=== PATIENT | female | born 1970 | race Caucasian/White ===

== ENCOUNTER 2016-12-02 20:25 | Emergency (ER) | payer BC ==
[~2016-12-02 20:25] MED LIST: /WARF25TA; ACET65TA OR; COUM10TA OR; GLUCTAB2; Lovenox SUBQ; TYLENOL #3 OR
--- NOTE | 2016-12-02 23:18 | EDDOCDS ---
Physician Documentation [facility] Name: Kelsy Marx Age: 46 yrs Sex: Female : 1970 Arrival Date: 12/02/2016 Time: 20:25 Bed TR8 Private MD: Fernando Craig NCFM Disposition: 12/02/16 22:53 Discharged to Home/Self Care. Impression: Sialolithiasis - AFFECTING RIGHT PAROTID GLAND. - Condition is Stable. - Discharge Instructions: Salivary Gland Infection. - Prescriptions for Keflex 500 mg Oral Capsule - take 1 capsule by ORAL route every 6 hours for 10 days; 40 capsule. - Medication Reconciliation, Local Pharmacy Hours form. - Follow up: Emergency Department; When: As needed; Reason: Worsening of conditions. Follow up: Private Physician; When: 2 - 3 days; Reason: Wound/Symptom Recheck, Recheck today's complaints, Continuance of care. - Problem is new. - Symptoms are unchanged. - Notes: THERE IS CURRENTLY NO INFECTION IN THE PAROTID GLAND, BUT YOU ARE GETTING AN ANBIOTIC TODAY TO PREVENT THIS FROM OCCURING. USE WARM, WET WASH CLOTH A COMPRESS TO THIS AREA FOR A FEW MINUTES AT A TIME. SUCK ON TART CANDIES TO HELP INCREASE SALIVA AND HELP WORK THE STONE OUT. YOU CAN ALSO MILK THIS AREA BY RUBBING WITH YOUR FINGER. RETURN TO THE ER WITH ANY WORSENING SYMPTOMS. Historical: - Allergies: Bactrim (Rash); Erythromycin (Rash); - Home Meds: 1. aspirin 81 mg Oral chew 1 tab once daily - PMHx: DVT; - PSHx: Arthroscopic surgery left knee, torn meniscus.; Tonsillectomy; ; D & C; - Social history: Smoking status: Patient states was never smoker of tobacco. No barriers to communication noted, The patient speaks fluent Nepalese. - Family history: No immediate family members are acutely ill. - : The pt / caregiver states he / she is not on anticoagulants. Home medication list is obtained from the patient. - Exposure Risk Screening:: None identified. 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 6 in. (167.64 cm); Pain 10; 20:28 Body Mass Index 35.51 (99.79 kg, 167.64 cm) elp MDM: 23:06 [facility] Payment Agreement was scanned into [employer] and attached to record. jp5 23:06 Financial registration complete. jp5 Signatures: Evelina Méndez RN RN kmg1 Kika Aceves RN RN rs3 Luisa Dalton PA-C PARich dt4 Sada Angel jp5 The chart was reviewed and I authenticate all verbal orders and agree with the evaluation and treatment provided.Attachments: 23:06 [facility] Payment Agreement jp5 MTDD
--- NOTE | 2016-12-02 23:18 | EDDOCDS ---
Nurse's Notes [facility] Name: Kelsy Marx Age: 46 yrs Sex: Female : 1970 Arrival Date: 12/02/2016 Time: 20:25 Bed TR8 Private MD: Fernando Craig NCFM Diagnosis: Sialolithiasis-AFFECTING RIGHT PAROTID GLAND Presentation: 12/02 20:45 Presenting complaint: Patient states: sudden onset of right jaw spasm and swelling at 7 rs3 PM. felt like jaw locked in. Adult Sepsis Screening: The patient does not have new or worsening altered mentation. Patient's respiratory rate is less than 22. Systolic blood pressure is greater than 100. Patient has a qSOFA score of 0- Negative Sepsis Screen. Suicide/Homicide risk assessment- the patient denies having any suicidal and/or homicidal ideations and does not present with any other emotional, behavioral or mental health complaints. Status: Patient is not a patient services representative or dependent. Transition of care: patient was not received from another setting of care. 20:45 Acuity: OSCAR Level 3 rs3 20:45 Method Of Arrival: Walkin/Carried/Asstd rs3 Triage Assessment: 20:48 General: Appears in no apparent distress. Pain: Location: right jaw. HIV screening NA rs3 for this visit Offered previously. 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 aspirin 81 mg Oral chew 1 tab once daily - PMHx: DVT; - PSHx: Arthroscopic surgery left knee, torn meniscus.; Tonsillectomy; ; D & C; - Social history: Smoking status: Patient states was never smoker of tobacco. No barriers to communication noted, The patient speaks fluent Tajik. - Family history: No immediate family members are acutely ill. - : The pt / caregiver states he / she is not on anticoagulants. Home medication list is obtained from the patient. - Exposure Risk Screening:: None identified. Screenin:00 Screening information is obtained from the patient. Fall risk: No risks identified. kmg1 Assistance ADL's: requires no assistance with activities of daily living. Abuse/DV Screen: The patient / caregiver reports he/she is: not in a situation that causes fear, pain or injury. Nutritional screening: No deficits noted. Advance Directives: There is no active DNR order. home support is adequate. Assessment: 23:00 General: Appears in no apparent distress, comfortable, Behavior is appropriate for age, kmg1 cooperative, pleasant. Pain: Location: right jaw Pain currently is 3 out of 10 on a pain scale. Quality of pain is described as tender. EENT: right facial swelling noted. Improved per patient. Vital Signs: 20:28 BP 165 / 85; Pulse 84; Resp 18; Temp 98.8; Pulse Ox 100% ; Weight 99.79 kg; Height 5 elp ft. 6 in. (167.64 cm); Pain 3/10; 20:28 Body Mass Index 35.51 (99.79 kg, 167.64 cm) el Vitals: 20:27 Log In Time: December 02, 2016 at 20:25. el ED Course: 20:26 Patient visited by Lisa Reyes PCA. elp 20:26 Fernando Craig is Private Physician. elp 20:26 Patient moved to Waiting elp 20:28 Patient visited by Lisa Reyes PCA. elp 20:28 Patient moved to Pre RCE elp 20:47 Triage Initiated rs3 22:00 Patient moved to Triage 3 ct3 22:02 Luisa Dalton PA-C [facility]. dt4 22:02 Tyler Ellis DO is Attending Physician. dt4 22:03 Patient visited by Luisa Dalton PA-C. dt4 23:00 The patient / caregiver is instructed regarding the plan of care and ED course. kmg1 23:00 No IV's were initiated during this patient's visit. No procedures done that require [facility] assistance. 23:03 Patient moved to 8 km 23:06 [facility] Payment Agreement was scanned into [employer] and attached to record. jp5 Order Results: There are currently no results for this order. Outcome: 22:53 Discharge ordered by Provider. dt4 23:00 Discharge Assessment: Patient awake, alert and oriented x 3. No cognitive and/or kmg1 functional deficits noted. Patient verbalized understanding of disposition instructions. Patient awake and alert. patient administered narcotics - no. The following High Risk Discharge criteria are identified: None. Discharged to home ambulatory. Condition: stable. Discharge instructions given to patient, Instructed on discharge instructions, follow up and referral plans. medication usage, Demonstrated understanding of instructions, medications, Pt was receptive of discharge instructions/ teaching. No special radiology studies were completed. Property sent home with patient. 23:18 Patient left the ED. kmg1 Signatures: Evelina Méndez, RN RN kmg1 Kika Aceves RN RN rs3 Jerri Keith, TIMEKEEPER TIMEKEEPER ct3 Lisa Reyes, TIMEKEEPER TIMEKEEPER elp Luisa Dalton PA-C PARich dt4 Sada Angel jp5 MTDD
--- NOTE | 2016-12-05 00:18 | EDDOCDS ---
Physician Documentation [facility] Name: Kelsy Marx Age: 46 yrs Sex: Female : 1970 Arrival Date: 12/02/2016 Time: 20:25 Bed TR8 Private MD: Fernando Craig NCFM Disposition: 12/02/16 22:53 Discharged to Home/Self Care. Impression: Sialolithiasis - AFFECTING RIGHT PAROTID GLAND. - Condition is Stable. - Discharge Instructions: Salivary Gland Infection. - Prescriptions for Keflex 500 mg Oral Capsule - take 1 capsule by ORAL route every 6 hours for 10 days; 40 capsule. - Medication Reconciliation, Local Pharmacy Hours form. - Follow up: Emergency Department; When: As needed; Reason: Worsening of conditions. Follow up: Private Physician; When: 2 - 3 days; Reason: Wound/Symptom Recheck, Recheck today's complaints, Continuance of care. - Problem is new. - Symptoms are unchanged. - Notes: THERE IS CURRENTLY NO INFECTION IN THE PAROTID GLAND, BUT YOU ARE GETTING AN ANBIOTIC TODAY TO PREVENT THIS FROM OCCURING. USE WARM, WET WASH CLOTH A COMPRESS TO THIS AREA FOR A FEW MINUTES AT A TIME. SUCK ON TART CANDIES TO HELP INCREASE SALIVA AND HELP WORK THE STONE OUT. YOU CAN ALSO MILK THIS AREA BY RUBBING WITH YOUR FINGER. RETURN TO THE ER WITH ANY WORSENING SYMPTOMS. Historical: - Allergies: Bactrim (Rash); Erythromycin (Rash); - Home Meds: 1. aspirin 81 mg Oral chew 1 tab once daily - PMHx: DVT; - PSHx: Arthroscopic surgery left knee, torn meniscus.; Tonsillectomy; ; D & C; - Social history: Smoking status: Patient states was never smoker of tobacco. No barriers to communication noted, The patient speaks fluent Irish. - Family history: No immediate family members are acutely ill. - : The pt / caregiver states he / she is not on anticoagulants. Home medication list is obtained from the patient. - Exposure Risk Screening:: None identified. 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 6 in. (167.64 cm); Pain 01/20; 20:28 Body Mass Index 35.51 (99.79 kg, 167.64 cm) elp MDM: : [facility] [place] Agreement was scanned into [employer] and attached to record. 5 : Financial registration complete. jp5 12/03 10:38 T-Sheet-- Draft Copy was scanned into [employer] and attached to record. 12/04 16:15 T-Sheet-- Draft Copy was scanned into [employer] and attached to record. klr Signatures: Evelina Méndez, RN RN kmg1 Lillian Fletcher, Reg Reg gb Kika Aceves,RN RN rs3 Luisa Dalton PA-C PARich chan4 Sada Angel jp5 Brooke Morataya The chart was reviewed and I authenticate all verbal orders and agree with the evaluation and treatment provided.Attachments: 12/02 23: [facility] [place] Agreement jp5 12/03 10:38 T-Sheet-- Draft Copy 12/04 16:15 T-Sheet-- Draft Copy klr Chart Complete MTDD
--- NOTE | 2016-12-05 00:18 | EDDOCDS ---
Nurse's Notes [facility] Name: Kelsy Marx Age: 46 yrs Sex: Female : 1970 Arrival Date: 12/02/2016 Time: 20:25 Bed TR8 Private MD: Fernando Craig NCFM Diagnosis: Sialolithiasis-AFFECTING RIGHT PAROTID GLAND Presentation: 12/02 20:45 Presenting complaint: Patient states: sudden onset of right jaw spasm and swelling at 7 rs3 PM. felt like jaw locked in. Adult Sepsis Screening: The patient does not have new or worsening altered mentation. Patient's respiratory rate is less than 22. Systolic blood pressure is greater than 100. Patient has a qSOFA score of 0- Negative Sepsis Screen. Suicide/Homicide risk assessment- the patient denies having any suicidal and/or homicidal ideations and does not present with any other emotional, behavioral or mental health complaints. Status: Patient is not a account services representative or dependent. Transition of care: patient was not received from another setting of care. 20:45 Acuity: OSCAR Level 3 rs3 20:45 Method Of Arrival: Walkin/Carried/Asstd rs3 Triage Assessment: 20:48 General: Appears in no apparent distress. Pain: Location: right jaw. HIV screening NA rs3 for this visit Offered previously. 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 aspirin 81 mg Oral chew 1 tab once daily - PMHx: DVT; - PSHx: Arthroscopic surgery left knee, torn meniscus.; Tonsillectomy; ; D & C; - Social history: Smoking status: Patient states was never smoker of tobacco. No barriers to communication noted, The patient speaks fluent Telugu. - Family history: No immediate family members are acutely ill. - : The pt / caregiver states he / she is not on anticoagulants. Home medication list is obtained from the patient. - Exposure Risk Screening:: None identified. Screenin:00 Screening information is obtained from the patient. Fall risk: No risks identified. kmg1 Assistance ADL's: requires no assistance with activities of daily living. Abuse/DV Screen: The patient / caregiver reports he/she is: not in a situation that causes fear, pain or injury. Nutritional screening: No deficits noted. Advance Directives: There is no active DNR order. home support is adequate. Assessment: 23:00 General: Appears in no apparent distress, comfortable, Behavior is appropriate for age, kmg1 cooperative, pleasant. Pain: Location: right jaw Pain currently is 3 out of 10 on a pain scale. Quality of pain is described as tender. EENT: right facial swelling noted. Improved per patient. Vital Signs: 20:28 BP 165 / 85; Pulse 84; Resp 18; Temp 98.8; Pulse Ox 100% ; Weight 99.79 kg; Height 5 elp ft. 6 in. (167.64 cm); Pain 3/10; 20:28 Body Mass Index 35.51 (99.79 kg, 167.64 cm) el Vitals: 20:27 Log In Time: December 02, 2016 at 20:25. elp ED Course: 20:26 Patient visited by Lisa Reyes PCA. elp 20:26 Fernando Craig is Private Physician. elp 20:26 Patient moved to Waiting elp 20:28 Patient visited by Lisa Reyes PCA. elp 20:28 Patient moved to Pre RCE elp 20:47 Triage Initiated rs3 22:00 Patient moved to Triage 3 ct3 22:02 [facility] dt4 22:02 Tyler Ellis DO is Attending Physician. dt4 22:03 Patient visited by Luisa Dalton PA-C. dt4 23:00 The patient / caregiver is instructed regarding the plan of care and ED course. kmg1 23:00 No IV's were initiated during this patient's visit. No procedures done that require km assistance. 23:03 Patient moved to TR8 kmg1 23:06 [facility] Payment Agreement was scanned into [employer] and attached to record. jp5 12/03 10:38 T-Sheet-- Draft Copy was scanned into [employer] and attached to record. gb 12/04 16:15 T-Sheet-- Draft Copy was scanned into [employer] and attached to record. klr Order Results: There are currently no results for this order. Outcome: 12/02 22:53 Discharge ordered by Provider. dt4 23:00 Discharge Assessment: Patient awake, alert and oriented x 3. No cognitive and/or kmg1 functional deficits noted. Patient verbalized understanding of disposition instructions. Patient awake and alert. patient administered narcotics - no. The following High Risk Discharge criteria are identified: None. Discharged to home ambulatory. Condition: stable. Discharge instructions given to patient, Instructed on discharge instructions, follow up and referral plans. medication usage, Demonstrated understanding of instructions, medications, Pt was receptive of discharge instructions/ teaching. No special radiology studies were completed. Property sent home with patient. 23:18 [place] the [place]. [facility] [place]: Evelina Méndez, RN RN kmg1 Lillian Fletcher, Reg Reg gb Kika AcevesRN RN rs3 Jerri Keith, INSULATION POWER UNIT TENDER INSULATION POWER UNIT TENDER ct3 Lisa Reyes, INSULATION POWER UNIT TENDER INSULATION POWER UNIT TENDER elp Luisa Dalton PA-C PA-C dt4 Sada Angel Kathie klr Chart Complete NANCY
--- NOTE | 2016-12-05 00:18 | EDDOCDS ---
Physician Documentation [facility] Name: Kelsy Marx Age: 46 yrs Sex: Female : 1970 Arrival Date: 12/02/2016 Time: 20:25 Bed TR8 Private MD: Fernando Craig NCFM Disposition: 12/02/16 22:53 Discharged to Home/Self Care. Impression: Sialolithiasis - AFFECTING RIGHT PAROTID GLAND. - Condition is Stable. - Discharge Instructions: Salivary Gland Infection. - Prescriptions for Keflex 500 mg Oral Capsule - take 1 capsule by ORAL route every 6 hours for 10 days; 40 capsule. - Medication Reconciliation, Local Pharmacy Hours form. - Follow up: Emergency Department; When: As needed; Reason: Worsening of conditions. Follow up: Private Physician; When: 2 - 3 days; Reason: Wound/Symptom Recheck, Recheck today's complaints, Continuance of care. - Problem is new. - Symptoms are unchanged. - Notes: THERE IS CURRENTLY NO INFECTION IN THE PAROTID GLAND, BUT YOU ARE GETTING AN ANBIOTIC TODAY TO PREVENT THIS FROM OCCURING. USE WARM, WET WASH CLOTH A COMPRESS TO THIS AREA FOR A FEW MINUTES AT A TIME. SUCK ON TART CANDIES TO HELP INCREASE SALIVA AND HELP WORK THE STONE OUT. YOU CAN ALSO MILK THIS AREA BY RUBBING WITH YOUR FINGER. RETURN TO THE ER WITH ANY WORSENING SYMPTOMS. Historical: - Allergies: Bactrim (Rash); Erythromycin (Rash); - Home Meds: 1. aspirin 81 mg Oral chew 1 tab once daily - PMHx: DVT; - PSHx: Arthroscopic surgery left knee, torn meniscus.; Tonsillectomy; ; D & C; - Social history: Smoking status: Patient states was never smoker of tobacco. No barriers to communication noted, The patient speaks fluent Solomon Islander. - Family history: No immediate family members are acutely ill. - : The pt / caregiver states he / she is not on anticoagulants. Home medication list is obtained from the patient. - Exposure Risk Screening:: None identified. 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 6 in. (167.64 cm); Pain 01/20; 20:28 Body Mass Index 35.51 (99.79 kg, 167.64 cm) elp MDM: : [facility] [place] Payment Agreement was scanned into [employer] and attached to record. 5 : Financial registration complete. jp5 12/03 10:38 T-Sheet-- Draft Copy was scanned into [employer] and attached to record. 12/04 16:15 T-Sheet-- Draft Copy was scanned into [employer] and attached to record. klr Signatures: Evelina Méndez, RN RN kmg1 Lillian Fletcher, Reg Reg gb Kika Aceves,RN RN rs3 Luisa Dalton PA-C PARich chan4 Sada Angel jp5 Brooke Morataya The chart was reviewed and I authenticate all verbal orders and agree with the evaluation and treatment provided.Attachments: 12/02 23: [facility] [place] Payment Agreement jp5 12/03 10:38 T-Sheet-- Draft Copy 12/04 16:15 T-Sheet-- Draft Copy klr Chart Complete MTDD
== END 2016-12-02 23:18 | disposition home or self-care (01) ==
LOC: M ED 20:25
DX: K11.5 Sialolithiasis (principal); R22.1 Localized swelling, mass and lump, neck; Z79.82 Long term (current) use of aspirin; Z86.718 Personal history of other venous thrombosis and embolism; Z88.1 Allergy status to other antibiotic agents

== ENCOUNTER 2016-12-03 14:37 | Emergency (ER) | payer BC ==
[2016-12-03] MEDS ORDERED: KETOROLAC 30 MG/ML VIAL (J1885) As Ordered ONE (18:46)
[2016-12-03] MEDS ORDERED: UNASYN 3 GM VIAL As Ordered ONE (18:51)
[2016-12-03 19:14] LABS: ANION GAP 8 MEQ/L (8-16); BLOOD UREA NITROGEN 14 MG/DL (7-18); CALCIUM LEVEL 8.8 MG/DL (8.5-10.1); CARBON DIOXIDE LEVEL 27 MEQ/L (21-32); CHLORIDE LEVEL 106 MEQ/L (98-107); CREATININE FOR GFR 0.67 MG/DL (0.55-1.02); GLOMERULAR FILTRATION RATE > 60.0 (>58); GLUCOSE, FASTING 88 MG/DL (70-105); POTASSIUM SERUM 3.7 MEQ/L (3.5-5.1); SODIUM LEVEL 141 MEQ/L (136-145)
[2016-12-03] MEDS ORDERED: ISOVUE-370 76% 100ML VIAL (Q9967) As Ordered ONE (19:26)
[2016-12-03 19:29] LABS: BASO # 0.1 K/mm3 (0.0-0.2); BASO % 0.6 % (0.0-1.0); EOS # 0.1 K/mm3 (0.0-0.50); EOS % 1.4 % (0.0-3.0); LARGE UNSTAINED CELL # 0.1 K/mm3 (0.0-0.4); LARGE UNSTAINED CELL % 1.1 % (0.0-4.0); LYMPH # 1.9 K/mm3 (1.5-4.5); LYMPH % 19.7 % (24.0-44.0); MEAN CORPUSCULAR HEMOGLOBIN 25.8 pg (27.0-33.0); MEAN CORPUSCULAR HGB CONC 32.4 g/dl (32.0-36.5); MEAN CORPUSCULAR VOLUME 79.6 fl (80.0-96.0); MONO # 0.4 K/mm3 (0.0-0.8); MONO % 4.2 % (0.0-5.0); NEUTROPHILS # 7.2 K/mm3 (1.8-7.7); PLATELET COUNT, AUTOMATED 310 k/mm3 (150-450); RED CELL DISTRIBUTION WIDTH 14.2 % (11.5-14.5); WHITE BLOOD COUNT 9.8 K/mm3 (4.0-10.0)
--- NOTE | 2016-12-03 20:20 | REPUSA ---
HISTORY: Right facial swelling. COMPARISON: No relevant comparison is available at the time of interpretation. CT FACE MANDIBLE without contrast: Soft Tissues: The right parotid gland is larger than the left, and demonstrates increased vascularity , suggesting parotiditis. There is no evidence of abscess. Sinuses and mastoids: Clear, without sinusitis. Orbits: No retrobulbar trauma. Maxilla: Intact. Mandible: Intact. IMPRESSION: Swelling and hyperemia of the right parotid gland, consistent with parotiditis. No absces s.
[2016-12-03] MEDS ORDERED: NORCO 5/325MG TABLET (BULK) As Ordered ONE (21:02)
--- NOTE | 2016-12-03 21:13 | EDDOCDS ---
Physician Documentation [facility] Name: Kelsy Marx Age: 46 yrs Sex: Female : 1970 Arrival Date: 12/03/2016 Time: 14:37 Bed I2 / M2 Private MD: Fernando Craig [facility] Disposition: 12/03/16 21:00 Discharged to Home/Self Care. Impression: Acute sialoadenitis - right. - Condition is Stable. - Discharge Instructions: Parotitis, Salivary Gland Infection. - Prescriptions for [place] 5- 325 mg Oral Tablet - take 1 tablet by ORAL route every 6 hours As needed MDD: 4 tabs; 20 tablet. - Medication Reconciliation, Local Pharmacy Hours form. - Follow up: Ayush Nugent; When: Call to arrange an appointment; Reason: Recheck today's complaints, Continuance of care. - Problem is new. - Symptoms are unchanged. Historical: - Allergies: Bactrim (Rash); Erythromycin (Rash); - Home Meds: 1. aspirin 81 mg Oral chew 1 tab once daily 2. cephalexin 500 mg Oral tab 1 tab every 6 hours (Last dose: 12/03/2016 11:30) - PMHx: DVT; - PSHx: Arthroscopic surgery left knee, torn meniscus.; Tonsillectomy; ; D & C; thumb, left; - Social history: Smoking status: Patient states was never smoker of tobacco. No barriers to communication noted. - Family history: Not pertinent. - : The pt / caregiver states he / she is not on anticoagulants. Home medication list is obtained from the patient. - Exposure Risk Screening:: None identified. 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 6 in. (167.64 cm) (R); Pain 5/10; 19:13 BP 138 / 74; Pulse 71; Resp 18; Temp 99.2(TE); Pulse Ox 96% on R/A; Pain 0/10; kb5 21:10 BP 139 / 85; Pulse 71; Resp 18; Temp 98(O); Pulse Ox 98% on R/A; ld5 14:40 Body Mass Index 35.51 (99.79 kg, 167.64 cm) mt4 MDM: 18:34 IV Saline Lock ordered. mo1 18:34 NS 0.9% 1000 ml IV at bolus once ordered. mo1 18:34 Ampicillin-Sulbactam Sodium 3 grams IVPB once over 30 mins; dilute in 100mL of NS or mo1 D5W ordered. 18:34 ketorolac 30 mg IVP once ordered. mo1 18:34 CT Maxillofacial with contrast Ordered. EDMS 18:35 CBC with Diff Ordered. EDMS 18:35 BMP Ordered. EDMS 18:50 C REACTIVE PROTEIN QUANTITATIV Ordered. EDMS 19:34 BMP Reviewed. mo1 19:34 C REACTIVE PROTEIN QUANTITATIV Reviewed. mo1 19:34 CBC with Diff Reviewed. mo1 20:56 HYDROcodone-acetaminophen 4 pack- 5 mg-325 mg 1 packets PO Per package directions; mo1 Dispense with patient. 1 po q4h prn for pain ordered. Administered Medications: 18:50 Drug: NS 0.9% 1000 ml [sodium chloride 0.9 % injection solution] Route: IV; Rate: dsf bolus; Site: right antecubital; 21:10 Follow up: IV Status: Completed infusion; IV Intake: 1000ml ld5 18:50 Drug: ketorolac 30 mg [ketorolac 30 mg/mL (1 mL) injection solution (1 mL)] Route: IVP; dsf Site: right antecubital; 21:10 Follow up: Response: Pain is decreased ld5 18:58 Drug: Ampicillin-Sulbactam Sodium 3 grams [ampicillin-sulbactam 1.5 gram solution for srm injection] Route: IVPB; Infused Over: 30 mins; Site: right antecubital; 19:40 Follow up: IV Status: Completed infusion; IV Intake: 100ml ld5 21:09 Drug: HYDROcodone-acetaminophen 4 pack- 1 packets [hydrocodone 5 mg-acetaminophen 325 ld5 mg tablet (1 tabs)] {Co-Signature: [facility] (Mary Mandujano RN).} Route: PO; 21:10 Follow up: Response: Confirmed pt not driving.; Med's dispensed home ld5 Signatures: Dispatcher [employer] EDMS Yumiko Morillo RN RN [facility] Yoanna Campuzano RN RN 5 Mary Mandujano RN RN [facility] Isaias Castillo PA PA moNevaeh Christopher RN [facility] Mary Mandujano RN [facility] The chart was reviewed and I authenticate all verbal orders and agree with the evaluation and treatment provided.Corrections: (The following items were deleted from the chart) 18:49 18:45 C REACTIVE PROTEIN QUANTITATIV+LAB ordered. EDMS EDMS MTDD
--- NOTE | 2016-12-03 21:14 | EDDOCDS ---
Nurse's Notes [facility] Name: Kelsy Marx Age: 46 yrs Sex: Female : 1970 Arrival Date: 12/03/2016 Time: 14:37 Bed I2 / M2 Private MD: Fernando Craig NCFM Diagnosis: Acute sialoadenitis-right Presentation: 12/03 15:07 Presenting complaint: Patient states: seen here last night and diagnosed with salivary cjh gland stone and now it is getting worse, can't open jaw due to spasms and pain and can't eat. Adult Sepsis Screening: The patient does not have new or worsening altered mentation. Patient's respiratory rate is less than 22. Systolic blood pressure is greater than 100. Patient has a qSOFA score of 0- Negative Sepsis Screen. Suicide/Homicide risk assessment- the patient denies having any suicidal and/or homicidal ideations and does not present with any other emotional, behavioral or mental health complaints. Status: Patient is not a customer servicer or dependent. Transition of care: patient was not received from another setting of care. 15:07 Acuity: OSCAR Level 3 [facility] 15:07 Method Of Arrival: Walkin/Carried/Asstd [facility] Triage Assessment: 15:10 General: Appears in no apparent distress, comfortable, Behavior is appropriate for age, [facility] cooperative. Pain: Location: face. HIV screening NA for this visit Offered previously. Neurological: Level of Consciousness is awake, alert, Oriented to person, place, time. Respiratory: Airway is patent Respiratory effort is even, unlabored, Respiratory pattern is regular, symmetrical. Derm: Skin is pink, warm & dry. Swollen area noted on head. 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 aspirin 81 mg Oral chew 1 tab once daily 2. cephalexin 500 mg Oral tab 1 tab every 6 hours (Last dose: 12/03/2016 11:30) - PMHx: DVT; - PSHx: Arthroscopic surgery left knee, torn meniscus.; Tonsillectomy; ; D & C; thumb, left; - Social history: Smoking status: Patient states was never smoker of tobacco. No barriers to communication noted. - Family history: Not pertinent. - : The pt / caregiver states he / she is not on anticoagulants. Home medication list is obtained from the patient. - Exposure Risk Screening:: None identified. Screenin:10 Screening information is obtained from the patient. Fall risk: No risks identified. ld5 Assistance ADL's: requires no assistance with activities of daily living. Abuse/DV Screen: The patient / caregiver reports he/she is: not in a situation that causes fear, pain or injury. Nutritional screening: No deficits noted. Advance Directives: There is no active DNR order. home support is adequate. Assessment: 18:47 General: Appears in no apparent distress, Behavior is appropriate for age, cooperative. srm Neurological: No deficits noted. Respiratory: No deficits noted. GI: No deficits noted. Derm: swelling to right lower side of face/ jaw. 19:40 General: Pt returned from CT. Tolerated well. Pt ambulated to bathroom with no ld5 distress. Will continue to monitor. 20:36 General: ambulates to bathroom with no assist required, gait steady, awaiting results, cjh IV infusing without difficulty. 21:10 General: Appears in no apparent distress. Pain: Pain currently is 1 out of 10 on a pain ld5 scale. Neurological: Level of Consciousness is awake, alert. Respiratory: Airway is patent Respiratory effort is even, unlabored. Vital Signs: 14:40 BP 133 / 88 RA Sitting (auto/reg); Pulse 81 RA; Resp 18 S; Temp 98.8(O); Pulse Ox 100% mt4 ; Weight 99.79 kg (R); Height 5 ft. 6 in. (167.64 cm) (R); Pain 5/10; 19:13 BP 138 / 74; Pulse 71; Resp 18; Temp 99.2(TE); Pulse Ox 96% on R/A; Pain 0/10; kb5 21:10 BP 139 / 85; Pulse 71; Resp 18; Temp 98(O); Pulse Ox 98% on R/A; ld5 14:40 Body Mass Index 35.51 (99.79 kg, 167.64 cm) mt4 Vitals: 14:40 Log In Time: December 03, 2016 at 14:37. RN notified that patient meets Red Flag mt4 criteria. ED Course: 14:40 Patient visited by Yuliya White. mt4 14:40 Fernando Craig is Private Physician. mt4 14:40 Patient moved to Waiting mt4 15:09 Triage Initiated cjh 15:10 Patient moved to Pre RCE kr3 18:10 Patient moved to Triage 1 sew 18:19 Isaias Castillo PA is PHCP. mo1 18:19 David Chang MD is Attending Physician. mo1 18:28 Patient visited by Isaias Castillo PA. mo1 18:37 Patient moved to I2 / M2 jf3 18:47 The patient / caregiver is instructed regarding the plan of care and ED course. srm Accompanied by Significant Other, Patient has correct armband on for positive identification. Placed in gown. Bed in low position. Call light in reach. 18:47 Inserted saline lock: 20 gauge in right antecubital area and blood collected. srm 18:47 CBC with Diff Sent. srm 18:51 C REACTIVE PROTEIN QUANTITATIV Sent. dsf 18:51 BMP Sent. dsf 18:58 Patient visited by Yumiko Morillo RN. srm 19:14 Patient visited by Portillo Walter PCA. kb5 19:41 Patient visited by Yoanna Campuzano,GRACE. ld5 20:11 Patient visited by Portillo Walter PCA. kb5 20:38 Patient visited by Mary Mandujano,GRACE. [facility] 21:00 Ayush Nugent is Referral Physician. mo1 21:09 CT Maxillofacial with contrast Returned. EDMS 21:10 Discontinued lock intact, bleeding controlled, pressure dressing applied, No ld5 redness/swelling at site. No procedures done that require assistance. 21:12 Patient visited by Yoanna Campuzano,GRACE. ld5 Administered Medications: 18:50 Drug: NS 0.9% 1000 ml [sodium chloride 0.9 % injection solution] Route: IV; Rate: dsf bolus; Site: right antecubital; 21:10 Follow up: IV Status: Completed infusion; IV Intake: 1000ml ld5 18:50 Drug: ketorolac 30 mg [ketorolac 30 mg/mL (1 mL) injection solution (1 mL)] Route: IVP; dsf Site: right antecubital; 21:10 Follow up: Response: Pain is decreased ld5 18:58 Drug: Ampicillin-Sulbactam Sodium 3 grams [ampicillin-sulbactam 1.5 gram solution for srm injection] Route: IVPB; Infused Over: 30 mins; Site: right antecubital; 19:40 Follow up: IV Status: Completed infusion; IV Intake: 100ml ld5 21:09 Drug: HYDROcodone-acetaminophen 4 pack- 1 packets [hydrocodone 5 mg-acetaminophen 325 ld5 mg tablet (1 tabs)] {Co-Signature: [facility] (Mary Mandujano RN).} Route: PO; 21:10 Follow up: Response: Confirmed pt not driving.; Med's dispensed home ld5 Intake: 19:40 IV: 100.00ml; Total: 100.00ml. ld5 21:10 IV: 1000.00ml; Total: 1100.00ml. ld5 Order Results: Lab Order: CBC with Diff; SPEC'M 12/03/16 18:45 Test: WHITE BLOOD COUNT; Value: 9.8; Range: 4.0-10.0; Units: K/mm3; Status: F Test: RED BLOOD COUNT; Value: 5.17; Range: 4.00-5.40; Units: M/mm3; Status: F Test: HEMOGLOBIN; Value: 13.3; Range: 12.0-16.0; Units: g/dl; Status: F Test: HEMATOCRIT; Value: 41.2; Range: 36.0-47.0; Units: %; Status: F Test: MEAN CORPUSCULAR VOLUME; Value: 79.6; Range: 80.0-96.0; Abnormal: Below low normal; Units: fl; Status: F Test: MEAN CORPUSCULAR HEMOGLOBIN; Value: 25.8; Range: 27.0-33.0; Abnormal: Below low normal; Units: pg; Status: F Test: MEAN CORPUSCULAR HGB CONC; Value: 32.4; Range: 32.0-36.5; Units: g/dl; Status: F Test: RED CELL DISTRIBUTION WIDTH; Value: 14.2; Range: 11.5-14.5; Units: %; Status: F Test: PLATELET COUNT, AUTOMATED; Value: 310; Range: 150-450; Units: k/mm3; Status: F Test: NEUTROPHILS %; Value: 73.0; Range: 36.0-66.0; Abnormal: Above high normal; Units: %; Status: F Test: LYMPH %; Value: 19.7; Range: 24.0-44.0; Abnormal: Below low normal; Units: %; Status: F Test: MONO %; Value: 4.2; Range: 0.0-5.0; Units: %; Status: F Test: EOS %; Value: 1.4; Range: 0.0-3.0; Units: %; Status: F Test: BASO %; Value: 0.6; Range: 0.0-1.0; Units: %; Status: F Test: LARGE UNSTAINED CELL %; Value: 1.1; Range: 0.0-4.0; Units: %; Status: F Test: NEUTROPHILS #; Value: 7.2; Range: 1.8-7.7; Units: K/mm3; Status: F Test: LYMPH #; Value: 1.9; Range: 1.5-4.5; Units: K/mm3; Status: F Test: MONO #; Value: 0.4; Range: 0.0-0.8; Units: K/mm3; Status: F Test: EOS #; Value: 0.1; Range: 0.0-0.50; Units: K/mm3; Status: F Test: BASO #; Value: 0.1; Range: 0.0-0.2; Units: K/mm3; Status: F Test: LARGE UNSTAINED CELL #; Value: 0.1; Range: 0.0-0.4; Units: K/mm3; Status: F Lab Order: [facility]; SPEC'M 12/03/16 18:45 Test: GLUCOSE, FASTING; Value: 88; Range: 70-105; Units: MG/DL; Status: F Test: BLOOD UREA NITROGEN; Value: 14; Range: 7-18; Units: MG/DL; Status: F Test: CREATININE FOR GFR; Value: 0.67; Range: 0.55-1.02; Units: MG/DL; Status: F Test: GLOMERULAR FILTRATION RATE; Value: > 60.0; Range: >58; Status: F Test: SODIUM LEVEL; Value: 141; Range: 136-145; Units: MEQ/L; Status: F Test: POTASSIUM SERUM; Value: 3.7; Range: 3.5-5.1; Units: MEQ/L; Status: F Test: CHLORIDE LEVEL; Value: 106; Range: 98-107; Units: MEQ/L; Status: F Test: CARBON DIOXIDE LEVEL; Value: 27; Range: 21-32; Units: MEQ/L; Status: F Test: ANION GAP; Value: 8; Range: 8-16; Units: MEQ/L; Status: F Test: CALCIUM LEVEL; Value: 8.8; Range: 8.5-10.1; Units: MG/DL; Status: F Test Note: ; Units are mL/min/1.73 m2 Chronic Kidney Disease Staging per NKF: Stage I & II GFR >=60 Normal to Mildly Decreased Stage III GFR 30-59 Moderately Decreased Stage IV GFR 15-29 Severely Decreased Stage V GFR <15 Very Little GFR Left ESRD GFR <15 on DINING CAR HOP Lab Order: C REACTIVE PROTEIN QUANTITATIV; SPEC'M 12/03/16 18:45 Test: C REACTIVE PROTEIN QUANTITATIV; Value: 1.39; Range: 0.00-0.30; Abnormal: Above high normal; Units: MG/DL; Status: F Radiology Order: CT Maxillofacial with contrast Test: CT Maxillofacial with contrast REASON FOR EXAMINATION: possible parotiditis, right sided, abscess?; ; HISTORY: Right facial swelling.; COMPARISON: No relevant comparison is available at the time of interpretation.; CT FACE MANDIBLE without contrast:; ; Soft Tissues: The right parotid gland is larger than the left, and demonstrates increased vascularity; , suggesting parotiditis. There is no evidence of abscess.; Sinuses and mastoids: Clear, without sinusitis.; Orbits: No retrobulbar trauma.; Maxilla: Intact.; Mandible: Intact.; ; IMPRESSION: Swelling and hyperemia of the right parotid gland, consistent with parotiditis. No absces; s.; ; Outcome: 21:00 Discharge ordered by Provider. mo1 21:10 Discharge Assessment: Patient awake, alert and oriented x 3. No cognitive and/or ld5 functional deficits noted. Patient verbalized understanding of disposition instructions. patient administered narcotics - no. The following High Risk Discharge criteria are identified: None. Discharged to home ambulatory, with significant other. Condition: stable. Discharge instructions given to patient, significant other, Instructed on discharge instructions, follow up and referral plans. medication usage, no driving heavy equipment, Demonstrated understanding of instructions, medications, Pt was receptive of discharge instructions/ teaching. Prescriptions given X 1. CT Study completed. Property :Personal belongings accompany Pt. 21:12 Patient left the ED. ld5 Signatures: Dispatcher [employer] EDYumiko Stevens, RN RN Marie Montes,RN RN kr3 Portillo Walter, KAYLENE PLATE MAKER ZINC kb5 Yuliya White mt4 Yoanna Campuzano RN RN ld5 Nevaeh FisherRN RN Mary JacobsenRN RN [facility] Loly Mcfarlane Michael, PA PA mo1 Kendrick Stanford,RN RN jf3 Mary Mandujano RN [facility] Corrections: (The following items were deleted from the chart) 18:49 18:47 C REACTIVE PROTEIN QUANTITATIV+LAB sent. [facility] EDIA MTDD
--- NOTE | 2016-12-05 22:13 | EDDOCDS ---
Physician Documentation [facility] Name: Kelsy Marx Age: 46 yrs Sex: Female : 1970 Arrival Date: 12/03/2016 Time: 14:37 Bed I2 / M2 Private MD: Fernando Craig [facility] Disposition: 12/03/16 21:00 Discharged to Home/Self Care. Impression: Acute sialoadenitis - right. - Condition is Stable. - Discharge Instructions: Parotitis, Salivary Gland Infection. - Prescriptions for Wyckoff 5- 325 mg Oral Tablet - take 1 tablet by ORAL route every 6 hours As needed MDD: 4 tabs; 20 tablet. - Medication Reconciliation, Local Pharmacy Hours form. - Follow up: Ayush Nugent; When: Call to arrange an appointment; Reason: Recheck today's complaints, Continuance of care. - Problem is new. - Symptoms are unchanged. Historical: - Allergies: Bactrim (Rash); Erythromycin (Rash); - Home Meds: 1. aspirin 81 mg Oral chew 1 tab once daily 2. cephalexin 500 mg Oral tab 1 tab every 6 hours (Last dose: 12/03/2016 11:30) - PMHx: DVT; - PSHx: Arthroscopic surgery left knee, torn meniscus.; Tonsillectomy; ; D & C; thumb, left; - Social history: Smoking status: Patient states was never smoker of tobacco. No barriers to communication noted. - Family history: Not pertinent. - : The pt / caregiver states he / she is not on anticoagulants. Home medication list is obtained from the patient. - Exposure Risk Screening:: None identified. 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 Vital Signs: 14:40 BP 133 / 88 RA Sitting (auto/reg); Pulse 81 RA; Resp 18 S; Temp 98.8(O); Pulse Ox 100% mt4 ; Weight 99.79 kg / 220 lbs (R); Height 5 ft. 6 in. (167.64 cm) (R); Pain 5/10; 19:13 BP 138 / 74; Pulse 71; Resp 18; Temp 99.2(TE); Pulse Ox 96% on R/A; Pain 0/10; kb5 21:10 BP 139 / 85; Pulse 71; Resp 18; Temp 98(O); Pulse Ox 98% on R/A; ld5 14:40 Body Mass Index 35.51 (99.79 kg, 167.64 cm) mt4 MDM: 18:34 IV Saline Lock ordered. mo1 18:34 NS 0.9% 1000 ml IV at bolus once ordered. mo1 18:34 Ampicillin-Sulbactam Sodium 3 grams IVPB once over 30 mins; dilute in 100mL of NS or mo1 D5W ordered. 18:34 ketorolac 30 mg IVP once ordered. mo1 18:34 CT Maxillofacial with contrast Ordered. EDMS 18:35 CBC with Diff Ordered. EDMS 18:35 BMP Ordered. EDMS 18:50 C REACTIVE PROTEIN QUANTITATIV Ordered. EDMS 19:34 BMP Reviewed. mo1 19:34 C REACTIVE PROTEIN QUANTITATIV Reviewed. mo1 19:34 CBC with Diff Reviewed. mo1 20:56 HYDROcodone-acetaminophen 4 pack- 5 mg-325 mg 1 packets PO Per package directions; mo1 Dispense with patient. 1 po q4h prn for pain ordered. 21:50 [facility] Payment Agreement was scanned into [employer] and attached to record. [facility] 21:50 Financial registration complete. [facility] 12/04 15:37 Radiology Report was scanned into [employer] and attached to record. kf3 Administered Medications: 12/03 18:50 Drug: NS 0.9% 1000 ml [sodium chloride 0.9 % injection solution] Route: IV; Rate: dsf bolus; Site: right antecubital; 21:10 Follow up: IV Status: Completed infusion; IV Intake: 1000ml ld5 18:50 Drug: ketorolac 30 mg [ketorolac 30 mg/mL (1 mL) injection solution (1 mL)] Route: IVP; dsf Site: right antecubital; 21:10 Follow up: Response: Pain is decreased ld5 18:58 Drug: Ampicillin-Sulbactam Sodium 3 grams [ampicillin-sulbactam 1.5 gram solution for srm injection] Route: IVPB; Infused Over: 30 mins; Site: right antecubital; 19:40 Follow up: IV Status: Completed infusion; IV Intake: 100ml ld5 21:09 Drug: HYDROcodone-acetaminophen 4 pack- 1 packets [hydrocodone 5 mg-acetaminophen 325 ld5 mg tablet (1 tabs)] {Co-Signature: brenda (Mary Mandujano RN).} Route: PO; 21:10 Follow up: Response: Confirmed pt not driving.; Med's dispensed home ld5 Signatures: Dispatcher [employer] EDMS Yumiko Morillo, RN RN [facility] Carlos Murphy, Reg Reg kf3 Yoanna Campuzano RN RN ld Mary Mandujano RN RN [facility] Isaias Castillo PA PA mo1 Beck, Gabriela gjb Fuller, Desiree RN [facility] Mary Mandujano RN [facility] The chart was reviewed and I authenticate all verbal orders and agree with the evaluation and treatment provided.Corrections: (The following items were deleted from the chart) 18:49 18:45 C REACTIVE PROTEIN QUANTITATIV+LAB ordered. EDMS EDMS Attachments: 21:50 [facility] Payment Agreement gjluz Chart Complete MTDD
--- NOTE | 2016-12-05 22:13 | EDDOCDS ---
Nurse's Notes [facility] Name: Kelsy Marx Age: 46 yrs Sex: Female : 1970 Arrival Date: 12/03/2016 Time: 14:37 Bed I2 / M2 Private MD: Fernando Craig NCFM Diagnosis: Acute sialoadenitis-right Presentation: 12/03 15:07 Presenting complaint: Patient states: seen here last night and diagnosed with salivary cjh gland stone and now it is getting worse, can't open jaw due to spasms and pain and can't eat. Adult Sepsis Screening: The patient does not have new or worsening altered mentation. Patient's respiratory rate is less than 22. Systolic blood pressure is greater than 100. Patient has a qSOFA score of 0- Negative Sepsis Screen. Suicide/Homicide risk assessment- the patient denies having any suicidal and/or homicidal ideations and does not present with any other emotional, behavioral or mental health complaints. Status: Patient is not a food service employee or dependent. Transition of care: patient was not received from another setting of care. 15:07 Acuity: OSCAR Level 3 [facility] 15:07 Method Of Arrival: Walkin/Carried/Asstd [facility] Triage Assessment: 15:10 General: Appears in no apparent distress, comfortable, Behavior is appropriate for age, [facility] cooperative. Pain: Location: face. HIV screening NA for this visit Offered previously. Neurological: Level of Consciousness is awake, alert, Oriented to person, place, time. Respiratory: Airway is patent Respiratory effort is even, unlabored, Respiratory pattern is regular, symmetrical. Derm: Skin is pink, warm & dry. Swollen area noted on head. 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 aspirin 81 mg Oral chew 1 tab once daily 2. cephalexin 500 mg Oral tab 1 tab every 6 hours (Last dose: 12/03/2016 11:30) - PMHx: DVT; - PSHx: Arthroscopic surgery left knee, torn meniscus.; Tonsillectomy; ; D & C; thumb, left; - Social history: Smoking status: Patient states was never smoker of tobacco. No barriers to communication noted. - Family history: Not pertinent. - : The pt / caregiver states he / she is not on anticoagulants. Home medication list is obtained from the patient. - Exposure Risk Screening:: None identified. Screenin:10 Screening information is obtained from the patient. Fall risk: No risks identified. ld5 Assistance ADL's: requires no assistance with activities of daily living. Abuse/DV Screen: The patient / caregiver reports he/she is: not in a situation that causes fear, pain or injury. Nutritional screening: No deficits noted. Advance Directives: There is no active DNR order. home support is adequate. Assessment: 18:47 General: Appears in no apparent distress, Behavior is appropriate for age, cooperative. srm Neurological: No deficits noted. Respiratory: No deficits noted. GI: No deficits noted. Derm: swelling to right lower side of face/ jaw. 19:40 General: Pt returned from CT. Tolerated well. Pt ambulated to bathroom with no ld5 distress. Will continue to monitor. 20:36 General: ambulates to bathroom with no assist required, gait steady, awaiting results, cjh IV infusing without difficulty. 21:10 General: Appears in no apparent distress. Pain: Pain currently is 1 out of 10 on a pain ld5 scale. Neurological: Level of Consciousness is awake, alert. Respiratory: Airway is patent Respiratory effort is even, unlabored. Vital Signs: 14:40 BP 133 / 88 RA Sitting (auto/reg); Pulse 81 RA; Resp 18 S; Temp 98.8(O); Pulse Ox 100% mt4 ; Weight 99.79 kg (R); Height 5 ft. 6 in. (167.64 cm) (R); Pain 5/10; 19:13 BP 138 / 74; Pulse 71; Resp 18; Temp 99.2(TE); Pulse Ox 96% on R/A; Pain 0/10; kb5 21:10 BP 139 / 85; Pulse 71; Resp 18; Temp 98(O); Pulse Ox 98% on R/A; ld5 14:40 Body Mass Index 35.51 (99.79 kg, 167.64 cm) mt4 Vitals: 14:40 Log In Time: December 03, 2016 at 14:37. RN notified that patient meets Red Flag mt4 criteria. ED Course: 14:40 Patient visited by Yuliya White. mt4 14:40 Fernando Craig is Private Physician. mt4 14:40 Patient moved to Waiting mt4 15:09 Triage Initiated cjh 15:10 Patient moved to Pre RCE kr3 18:10 Patient moved to Triage 1 sew 18:19 Isaias Castillo PA is PHCP. mo1 18:19 David Chang MD is Attending Physician. mo1 18:28 Patient visited by Isaias Castillo PA. mo1 18:37 Patient moved to I2 / M2 jf3 18:47 The patient / caregiver is instructed regarding the plan of care and ED course. srm Accompanied by Significant Other, Patient has correct armband on for positive identification. Placed in gown. Bed in low position. Call light in reach. 18:47 Inserted saline lock: 20 gauge in right antecubital area and blood collected. srm 18:47 CBC with Diff Sent. srm 18:51 C REACTIVE PROTEIN QUANTITATIV Sent. dsf 18:51 BMP Sent. dsf 18:58 Patient visited by Yumiko Morillo RN. srm 19:14 Patient visited by Portillo Walter PCA. kb5 19:41 Patient visited by Yoanna Campuzano RN. ld5 20:11 Patient visited by Portillo Walter PCA. kb5 20:38 Patient visited by Mary Mandujano,GRACE. [facility] 21:00 Ayush Nugent is Referral Physician. mo1 21:09 CT Maxillofacial with contrast Returned. EDMS 21:10 Discontinued lock intact, bleeding controlled, pressure dressing applied, No ld5 redness/swelling at site. No procedures done that require assistance. 21:12 Patient visited by Yoanna Campuzano RN. ld5 21:50 [facility] Payment Agreement was scanned into [employer] and attached to record. gjb 21:53 Patient name changed from Kelsy\S\Antoinette\S\Eseltine\S\ to Kelsy\S\ \S\Eseltine. EDMS 12/04 15:37 Radiology Report was scanned into [employer] and attached to record. kf3 Administered Medications: 12/03 18:50 Drug: NS 0.9% 1000 ml [sodium chloride 0.9 % injection solution] Route: IV; Rate: dsf bolus; Site: right antecubital; 21:10 Follow up: IV Status: Completed infusion; IV Intake: 1000ml ld5 18:50 Drug: ketorolac 30 mg [ketorolac 30 mg/mL (1 mL) injection solution (1 mL)] Route: IVP; dsf Site: right antecubital; 21:10 Follow up: Response: Pain is decreased ld5 18:58 Drug: Ampicillin-Sulbactam Sodium 3 grams [ampicillin-sulbactam 1.5 gram solution for srm injection] Route: IVPB; Infused Over: 30 mins; Site: right antecubital; 19:40 Follow up: IV Status: Completed infusion; IV Intake: 100ml ld5 21:09 Drug: HYDROcodone-acetaminophen 4 pack- 1 packets [hydrocodone 5 mg-acetaminophen 325 ld5 mg tablet (1 tabs)] {Co-Signature: [facility] (Mary Mandujano RN).} Route: PO; 21:10 Follow up: Response: Confirmed pt not driving.; Med's dispensed home ld5 Intake: 19:40 IV: 100.00ml; Total: 100.00ml. ld5 21:10 IV: 1000.00ml; Total: 1100.00ml. ld5 Order Results: Lab Order: CBC with Diff; SPEC'M 12/03/16 18:45 Test: WHITE BLOOD COUNT; Value: 9.8; Range: 4.0-10.0; Units: K/mm3; Status: F Test: RED BLOOD COUNT; Value: 5.17; Range: 4.00-5.40; Units: M/mm3; Status: F Test: HEMOGLOBIN; Value: 13.3; Range: 12.0-16.0; Units: g/dl; Status: F Test: HEMATOCRIT; Value: 41.2; Range: 36.0-47.0; Units: %; Status: F Test: MEAN CORPUSCULAR VOLUME; Value: 79.6; Range: 80.0-96.0; Abnormal: Below low normal; Units: fl; Status: F Test: MEAN CORPUSCULAR HEMOGLOBIN; Value: 25.8; Range: 27.0-33.0; Abnormal: Below low normal; Units: pg; Status: F Test: MEAN CORPUSCULAR HGB CONC; Value: 32.4; Range: 32.0-36.5; Units: g/dl; Status: F Test: RED CELL DISTRIBUTION WIDTH; Value: 14.2; Range: 11.5-14.5; Units: %; Status: F Test: PLATELET COUNT, AUTOMATED; Value: 310; Range: 150-450; Units: k/mm3; Status: F Test: NEUTROPHILS %; Value: 73.0; Range: 36.0-66.0; Abnormal: Above high normal; Units: %; Status: F Test: LYMPH %; Value: 19.7; Range: 24.0-44.0; Abnormal: Below low normal; Units: %; Status: F Test: MONO %; Value: 4.2; Range: 0.0-5.0; Units: %; Status: F Test: EOS %; Value: 1.4; Range: 0.0-3.0; Units: %; Status: F Test: BASO %; Value: 0.6; Range: 0.0-1.0; Units: %; Status: F Test: LARGE UNSTAINED CELL %; Value: 1.1; Range: 0.0-4.0; Units: %; Status: F Test: NEUTROPHILS #; Value: 7.2; Range: 1.8-7.7; Units: K/mm3; Status: F Test: LYMPH #; Value: 1.9; Range: 1.5-4.5; Units: K/mm3; Status: F Test: MONO #; Value: 0.4; Range: 0.0-0.8; Units: K/mm3; Status: F Test: EOS #; Value: 0.1; Range: 0.0-0.50; Units: K/mm3; Status: F Test: BASO #; Value: 0.1; Range: 0.0-0.2; Units: K/mm3; Status: F Test: LARGE UNSTAINED CELL #; Value: 0.1; Range: 0.0-0.4; Units: K/mm3; Status: F Lab Order: [facility]; SPEC'M 12/03/16 18:45 Test: GLUCOSE, FASTING; Value: 88; Range: 70-105; Units: MG/DL; Status: F Test: BLOOD UREA NITROGEN; Value: 14; Range: 7-18; Units: MG/DL; Status: F Test: CREATININE FOR GFR; Value: 0.67; Range: 0.55-1.02; Units: MG/DL; Status: F Test: GLOMERULAR FILTRATION RATE; Value: > 60.0; Range: >58; Status: F Test: SODIUM LEVEL; Value: 141; Range: 136-145; Units: MEQ/L; Status: F Test: POTASSIUM SERUM; Value: 3.7; Range: 3.5-5.1; Units: MEQ/L; Status: F Test: CHLORIDE LEVEL; Value: 106; Range: 98-107; Units: MEQ/L; Status: F Test: CARBON DIOXIDE LEVEL; Value: 27; Range: 21-32; Units: MEQ/L; Status: F Test: ANION GAP; Value: 8; Range: 8-16; Units: MEQ/L; Status: F Test: CALCIUM LEVEL; Value: 8.8; Range: 8.5-10.1; Units: MG/DL; Status: F Test Note: ; Units are mL/min/1.73 m2 Chronic Kidney Disease Staging per NKF: Stage I & II GFR >=60 Normal to Mildly Decreased Stage III GFR 30-59 Moderately Decreased Stage IV GFR 15-29 Severely Decreased Stage V GFR <15 Very Little GFR Left ESRD GFR <15 on GRAPHIC EDITOR Lab Order: C REACTIVE PROTEIN QUANTITATIV; SPEC'M 12/03/16 18:45 Test: C REACTIVE PROTEIN QUANTITATIV; Value: 1.39; Range: 0.00-0.30; Abnormal: Above high normal; Units: MG/DL; Status: F Radiology Order: CT Maxillofacial with contrast Test: CT Maxillofacial with contrast REASON FOR EXAMINATION: possible parotiditis, right sided, abscess?; ; HISTORY: Right facial swelling.; COMPARISON: No relevant comparison is available at the time of interpretation.; CT FACE MANDIBLE without contrast:; ; Soft Tissues: The right parotid gland is larger than the left, and demonstrates increased vascularity; , suggesting parotiditis. There is no evidence of abscess.; Sinuses and mastoids: Clear, without sinusitis.; Orbits: No retrobulbar trauma.; Maxilla: Intact.; Mandible: Intact.; ; IMPRESSION: Swelling and hyperemia of the right parotid gland, consistent with parotiditis. No absces; s.; ; Outcome: 21:00 Discharge ordered by Provider. mo1 21:10 Discharge Assessment: Patient awake, alert and oriented x 3. No cognitive and/or ld5 functional deficits noted. Patient verbalized understanding of disposition instructions. patient administered narcotics - no. The following High Risk Discharge criteria are identified: None. Discharged to home ambulatory, with significant other. Condition: stable. Discharge instructions given to patient, significant other, Instructed on discharge instructions, follow up and referral plans. medication usage, no driving heavy equipment, Demonstrated understanding of instructions, medications, Pt was receptive of discharge instructions/ teaching. Prescriptions given X 1. CT Study completed. Property :Personal belongings accompany Pt. 21:12 Patient left the ED. ld5 Signatures: Dispatcher [employer] EDMS Yumiko Morillo, RN RN Marie Montes,RN RN kr3 Portillo Walter, REAL ESTATE SERVICES ADMINISTRATOR REAL ESTATE SERVICES ADMINISTRATOR kb5 Fiddler, Carlos, Reg Reg kf3 Christopher, Yuliya mt4 Yoanna CampuzanoRN RN dani5 Nevaeh Fisher,RN Mary PaulRN RN [facility] Loly Mcfarlane Michael, PA PA mo1 Kendrick Stanford,RN RN jf3 Virginia Ramirez RN [facility] Corrections: (The following items were deleted from the chart) 18:49 18:47 C REACTIVE PROTEIN QUANTITATIV+LAB sent. [facility] EDMS Chart Complete MTDD
--- NOTE | 2016-12-05 22:13 | EDDOCDS ---
Physician Documentation [facility] Name: Kelsy Marx Age: 46 yrs Sex: Female : 1970 Arrival Date: 12/03/2016 Time: 14:37 Bed I2 / M2 Private MD: Fernando Craig [facility] Disposition: 12/03/16 21:00 Discharged to Home/Self Care. Impression: Acute sialoadenitis - right. - Condition is Stable. - Discharge Instructions: Parotitis, Salivary Gland Infection. - Prescriptions for [place] 5- 325 mg Oral Tablet - take 1 tablet by ORAL route every 6 hours As needed MDD: 4 tabs; 20 tablet. - Medication Reconciliation, Local Pharmacy Hours form. - Follow up: Ayush Nugent; When: Call to arrange an appointment; Reason: Recheck today's complaints, Continuance of care. - Problem is new. - Symptoms are unchanged. Historical: - Allergies: Bactrim (Rash); Erythromycin (Rash); - Home Meds: 1. aspirin 81 mg Oral chew 1 tab once daily 2. cephalexin 500 mg Oral tab 1 tab every 6 hours (Last dose: 12/03/2016 11:30) - PMHx: DVT; - PSHx: Arthroscopic surgery left knee, torn meniscus.; Tonsillectomy; ; D & C; thumb, left; - Social history: Smoking status: Patient states was never smoker of tobacco. No barriers to communication noted. - Family history: Not pertinent. - : The pt / caregiver states he / she is not on anticoagulants. Home medication list is obtained from the patient. - Exposure Risk Screening:: None identified. 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 6 in. (167.64 cm) (R); Pain 5/10; 19:13 BP 138 / 74; Pulse 71; Resp 18; Temp 99.2(TE); Pulse Ox 96% on R/A; Pain 0/10; kb5 21:10 BP 139 / 85; Pulse 71; Resp 18; Temp 98(O); Pulse Ox 98% on R/A; ld5 14:40 Body Mass Index 35.51 (99.79 kg, 167.64 cm) mt4 MDM: 18:34 IV Saline Lock ordered. mo1 18:34 NS 0.9% 1000 ml IV at bolus once ordered. mo1 18:34 Ampicillin-Sulbactam Sodium 3 grams IVPB once over 30 mins; dilute in 100mL of NS or mo1 D5W ordered. 18:34 ketorolac 30 mg IVP once ordered. mo1 18:34 CT Maxillofacial with contrast Ordered. EDMS 18:35 CBC with Diff Ordered. EDMS 18:35 BMP Ordered. EDMS 18:50 C REACTIVE PROTEIN QUANTITATIV Ordered. EDMS 19:34 BMP Reviewed. mo1 19:34 C REACTIVE PROTEIN QUANTITATIV Reviewed. mo1 19:34 CBC with Diff Reviewed. mo1 20:56 HYDROcodone-acetaminophen 4 pack- 5 mg-325 mg 1 packets PO Per package directions; mo1 Dispense with patient. 1 po q4h prn for pain ordered. 21:50 [facility] Payment Agreement was scanned into [employer] and attached to record. [facility] 21:50 Financial registration complete. [facility] 12/04 15:37 Radiology Report was scanned into [employer] and attached to record. kf3 Administered Medications: 12/03 18:50 Drug: NS 0.9% 1000 ml [sodium chloride 0.9 % injection solution] Route: IV; Rate: dsf bolus; Site: right antecubital; 21:10 Follow up: IV Status: Completed infusion; IV Intake: 1000ml ld5 18:50 Drug: ketorolac 30 mg [ketorolac 30 mg/mL (1 mL) injection solution (1 mL)] Route: IVP; dsf Site: right antecubital; 21:10 Follow up: Response: Pain is decreased ld5 18:58 Drug: Ampicillin-Sulbactam Sodium 3 grams [ampicillin-sulbactam 1.5 gram solution for srm injection] Route: IVPB; Infused Over: 30 mins; Site: right antecubital; 19:40 Follow up: IV Status: Completed infusion; IV Intake: 100ml ld5 21:09 Drug: HYDROcodone-acetaminophen 4 pack- 1 packets [hydrocodone 5 mg-acetaminophen 325 ld5 mg tablet (1 tabs)] {Co-Signature: [facility]renda (Mary Mandujano RN).} Route: PO; 21:10 Follow up: Response: Confirmed pt not driving.; Med's dispensed home ld5 Signatures: Dispatcher [employer] EDMS Yumiko Morillo, RN RN [facility] Carlos Murphy, Reg Reg kf3 Yoanna Campuzano RN RN ld Mary Mandujano RN RN [facility] Isaias Castillo PA PA mo1 Beck, Gabriela gjb Fuller, Desiree RN [facility] Mary Mandujano RN [facility] The chart was reviewed and I authenticate all verbal orders and agree with the evaluation and treatment provided.Corrections: (The following items were deleted from the chart) 18:49 18:45 C REACTIVE PROTEIN QUANTITATIV+LAB ordered. EDMS EDMS Attachments: 21:50 [facility] Payment Agreement [email or web address] Chart Complete MTDD
--- NOTE | 2016-12-08 09:39 | EDDOCDS ---
Nurse's Notes [facility] Name: Kelsy Marx Age: 46 yrs Sex: Female : 1970 Arrival Date: 12/03/2016 Time: 14:37 Bed I2 / M2 Private MD: Fernando Craig NCFM Diagnosis: Acute sialoadenitis-right Presentation: 12/03 15:07 Presenting complaint: Patient states: seen here last night and diagnosed with salivary cjh gland stone and now it is getting worse, can't open jaw due to spasms and pain and can't eat. Adult Sepsis Screening: The patient does not have new or worsening altered mentation. Patient's respiratory rate is less than 22. Systolic blood pressure is greater than 100. Patient has a qSOFA score of 0- Negative Sepsis Screen. Suicide/Homicide risk assessment- the patient denies having any suicidal and/or homicidal ideations and does not present with any other emotional, behavioral or mental health complaints. Status: Patient is not a national service officer or dependent. Transition of care: patient was not received from another setting of care. 15:07 Acuity: OSCAR Level 3 [facility] 15:07 Method Of Arrival: Walkin/Carried/Asstd [facility] Triage Assessment: 15:10 General: Appears in no apparent distress, comfortable, Behavior is appropriate for age, [facility] cooperative. Pain: Location: face. HIV screening NA for this visit Offered previously. Neurological: Level of Consciousness is awake, alert, Oriented to person, place, time. Respiratory: Airway is patent Respiratory effort is even, unlabored, Respiratory pattern is regular, symmetrical. Derm: Skin is pink, warm & dry. Swollen area noted on head. 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 aspirin 81 mg Oral chew 1 tab once daily 2. cephalexin 500 mg Oral tab 1 tab every 6 hours (Last dose: 12/03/2016 11:30) - PMHx: DVT; - PSHx: Arthroscopic surgery left knee, torn meniscus.; Tonsillectomy; ; D & C; thumb, left; - Social history: Smoking status: Patient states was never smoker of tobacco. No barriers to communication noted. - Family history: Not pertinent. - : The pt / caregiver states he / she is not on anticoagulants. Home medication list is obtained from the patient. - Exposure Risk Screening:: None identified. Screenin:10 Screening information is obtained from the patient. Fall risk: No risks identified. ld5 Assistance ADL's: requires no assistance with activities of daily living. Abuse/DV Screen: The patient / caregiver reports he/she is: not in a situation that causes fear, pain or injury. Nutritional screening: No deficits noted. Advance Directives: There is no active DNR order. home support is adequate. Assessment: 18:47 General: Appears in no apparent distress, Behavior is appropriate for age, cooperative. srm Neurological: No deficits noted. Respiratory: No deficits noted. GI: No deficits noted. Derm: swelling to right lower side of face/ jaw. 19:40 General: Pt returned from CT. Tolerated well. Pt ambulated to bathroom with no ld5 distress. Will continue to monitor. 20:36 General: ambulates to bathroom with no assist required, gait steady, awaiting results, cjh IV infusing without difficulty. 21:10 General: Appears in no apparent distress. Pain: Pain currently is 1 out of 10 on a pain ld5 scale. Neurological: Level of Consciousness is awake, alert. Respiratory: Airway is patent Respiratory effort is even, unlabored. Vital Signs: 14:40 BP 133 / 88 RA Sitting (auto/reg); Pulse 81 RA; Resp 18 S; Temp 98.8(O); Pulse Ox 100% mt4 ; Weight 99.79 kg (R); Height 5 ft. 6 in. (167.64 cm) (R); Pain 5/10; 19:13 BP 138 / 74; Pulse 71; Resp 18; Temp 99.2(TE); Pulse Ox 96% on R/A; Pain 0/10; kb5 21:10 BP 139 / 85; Pulse 71; Resp 18; Temp 98(O); Pulse Ox 98% on R/A; ld5 14:40 Body Mass Index 35.51 (99.79 kg, 167.64 cm) mt4 Vitals: 14:40 Log In Time: December 03, 2016 at 14:37. RN notified that patient meets Red Flag mt4 criteria. ED Course: 14:40 Patient visited by Yuliya White. mt4 14:40 Fernando Craig is Private Physician. mt4 14:40 Patient moved to Waiting mt4 15:09 Triage Initiated cjh 15:10 Patient moved to Pre RCE kr3 18:10 Patient moved to Triage 1 sew 18:19 Isaias Castillo PA is PHCP. mo1 18:19 David Chang MD is Attending Physician. mo1 18:28 Patient visited by Isaias Castillo PA. mo1 18:37 Patient moved to I2 / M2 jf3 18:47 The patient / caregiver is instructed regarding the plan of care and ED course. srm Accompanied by Significant Other, Patient has correct armband on for positive identification. Placed in gown. Bed in low position. Call light in reach. 18:47 Inserted saline lock: 20 gauge in right antecubital area and blood collected. srm 18:47 CBC with Diff Sent. srm 18:51 C REACTIVE PROTEIN QUANTITATIV Sent. dsf 18:51 BMP Sent. dsf 18:58 Patient visited by Yumiko Morillo RN. srm 19:14 Patient visited by Portillo Walter PCA. kb5 19:41 Patient visited by Yoanna Campuzano RN. ld5 20:11 Patient visited by Portillo Walter PCA. kb5 20:38 Patient visited by Mary Mandujano,GRACE. [facility] 21:00 Ayush Nugent is Referral Physician. mo1 21:09 CT Maxillofacial with contrast Returned. EDMS 21:10 Discontinued lock intact, bleeding controlled, pressure dressing applied, No ld5 redness/swelling at site. No procedures done that require assistance. 21:12 Patient visited by Yoanna Campuzano RN. ld5 21:50 [facility] Payment Agreement was scanned into [employer] and attached to record. gjb 21:53 Patient name changed from Kelsy\S\Antoinette\S\Eseltine\S\ to Kelsy\S\ \S\Eseltine. EDMS 12/04 15:37 Radiology Report was scanned into [employer] and attached to record. kf3 Administered Medications: 12/03 18:50 Drug: NS 0.9% 1000 ml [sodium chloride 0.9 % injection solution] Route: IV; Rate: dsf bolus; Site: right antecubital; 21:10 Follow up: IV Status: Completed infusion; IV Intake: 1000ml ld5 18:50 Drug: ketorolac 30 mg [ketorolac 30 mg/mL (1 mL) injection solution (1 mL)] Route: IVP; dsf Site: right antecubital; 21:10 Follow up: Response: Pain is decreased ld5 18:58 Drug: Ampicillin-Sulbactam Sodium 3 grams [ampicillin-sulbactam 1.5 gram solution for srm injection] Route: IVPB; Infused Over: 30 mins; Site: right antecubital; 19:40 Follow up: IV Status: Completed infusion; IV Intake: 100ml ld5 21:09 Drug: HYDROcodone-acetaminophen 4 pack- 1 packets [hydrocodone 5 mg-acetaminophen 325 ld5 mg tablet (1 tabs)] {Co-Signature: [facility] (Mary Mandujano RN).} Route: PO; 21:10 Follow up: Response: Confirmed pt not driving.; Med's dispensed home ld5 Intake: 19:40 IV: 100.00ml; Total: 100.00ml. ld5 21:10 IV: 1000.00ml; Total: 1100.00ml. ld5 Order Results: Lab Order: CBC with Diff; SPEC'M 12/03/16 18:45 Test: WHITE BLOOD COUNT; Value: 9.8; Range: 4.0-10.0; Units: K/mm3; Status: F Test: RED BLOOD COUNT; Value: 5.17; Range: 4.00-5.40; Units: M/mm3; Status: F Test: HEMOGLOBIN; Value: 13.3; Range: 12.0-16.0; Units: g/dl; Status: F Test: HEMATOCRIT; Value: 41.2; Range: 36.0-47.0; Units: %; Status: F Test: MEAN CORPUSCULAR VOLUME; Value: 79.6; Range: 80.0-96.0; Abnormal: Below low normal; Units: fl; Status: F Test: MEAN CORPUSCULAR HEMOGLOBIN; Value: 25.8; Range: 27.0-33.0; Abnormal: Below low normal; Units: pg; Status: F Test: MEAN CORPUSCULAR HGB CONC; Value: 32.4; Range: 32.0-36.5; Units: g/dl; Status: F Test: RED CELL DISTRIBUTION WIDTH; Value: 14.2; Range: 11.5-14.5; Units: %; Status: F Test: PLATELET COUNT, AUTOMATED; Value: 310; Range: 150-450; Units: k/mm3; Status: F Test: NEUTROPHILS %; Value: 73.0; Range: 36.0-66.0; Abnormal: Above high normal; Units: %; Status: F Test: LYMPH %; Value: 19.7; Range: 24.0-44.0; Abnormal: Below low normal; Units: %; Status: F Test: MONO %; Value: 4.2; Range: 0.0-5.0; Units: %; Status: F Test: EOS %; Value: 1.4; Range: 0.0-3.0; Units: %; Status: F Test: BASO %; Value: 0.6; Range: 0.0-1.0; Units: %; Status: F Test: LARGE UNSTAINED CELL %; Value: 1.1; Range: 0.0-4.0; Units: %; Status: F Test: NEUTROPHILS #; Value: 7.2; Range: 1.8-7.7; Units: K/mm3; Status: F Test: LYMPH #; Value: 1.9; Range: 1.5-4.5; Units: K/mm3; Status: F Test: MONO #; Value: 0.4; Range: 0.0-0.8; Units: K/mm3; Status: F Test: EOS #; Value: 0.1; Range: 0.0-0.50; Units: K/mm3; Status: F Test: BASO #; Value: 0.1; Range: 0.0-0.2; Units: K/mm3; Status: F Test: LARGE UNSTAINED CELL #; Value: 0.1; Range: 0.0-0.4; Units: K/mm3; Status: F Lab Order: [facility]; SPEC'M 12/03/16 18:45 Test: GLUCOSE, FASTING; Value: 88; Range: 70-105; Units: MG/DL; Status: F Test: BLOOD UREA NITROGEN; Value: 14; Range: 7-18; Units: MG/DL; Status: F Test: CREATININE FOR GFR; Value: 0.67; Range: 0.55-1.02; Units: MG/DL; Status: F Test: GLOMERULAR FILTRATION RATE; Value: > 60.0; Range: >58; Status: F Test: SODIUM LEVEL; Value: 141; Range: 136-145; Units: MEQ/L; Status: F Test: POTASSIUM SERUM; Value: 3.7; Range: 3.5-5.1; Units: MEQ/L; Status: F Test: CHLORIDE LEVEL; Value: 106; Range: 98-107; Units: MEQ/L; Status: F Test: CARBON DIOXIDE LEVEL; Value: 27; Range: 21-32; Units: MEQ/L; Status: F Test: ANION GAP; Value: 8; Range: 8-16; Units: MEQ/L; Status: F Test: CALCIUM LEVEL; Value: 8.8; Range: 8.5-10.1; Units: MG/DL; Status: F Test Note: ; Units are mL/min/1.73 m2 Chronic Kidney Disease Staging per NKF: Stage I & II GFR >=60 Normal to Mildly Decreased Stage III GFR 30-59 Moderately Decreased Stage IV GFR 15-29 Severely Decreased Stage V GFR <15 Very Little GFR Left ESRD GFR <15 on STRAIGHTEDGE MAN Lab Order: C REACTIVE PROTEIN QUANTITATIV; SPEC'M 12/03/16 18:45 Test: C REACTIVE PROTEIN QUANTITATIV; Value: 1.39; Range: 0.00-0.30; Abnormal: Above high normal; Units: MG/DL; Status: F Radiology Order: CT Maxillofacial with contrast Test: CT Maxillofacial with contrast REASON FOR EXAMINATION: possible parotiditis, right sided, abscess?; ; HISTORY: Right facial swelling.; COMPARISON: No relevant comparison is available at the time of interpretation.; CT FACE MANDIBLE without contrast:; ; Soft Tissues: The right parotid gland is larger than the left, and demonstrates increased vascularity; , suggesting parotiditis. There is no evidence of abscess.; Sinuses and mastoids: Clear, without sinusitis.; Orbits: No retrobulbar trauma.; Maxilla: Intact.; Mandible: Intact.; ; IMPRESSION: Swelling and hyperemia of the right parotid gland, consistent with parotiditis. No absces; s.; ; Outcome: 21:00 Discharge ordered by Provider. mo1 21:10 Discharge Assessment: Patient awake, alert and oriented x 3. No cognitive and/or ld5 functional deficits noted. Patient verbalized understanding of disposition instructions. patient administered narcotics - no. The following High Risk Discharge criteria are identified: None. Discharged to home ambulatory, with significant other. Condition: stable. Discharge instructions given to patient, significant other, Instructed on discharge instructions, follow up and referral plans. medication usage, no driving heavy equipment, Demonstrated understanding of instructions, medications, Pt was receptive of discharge instructions/ teaching. Prescriptions given X 1. CT Study completed. Property :Personal belongings accompany Pt. 21:12 Patient left the ED. ld5 Signatures: Dispatcher [employer] EDMS Yumiko Morillo, RN RN Marie Montes,RN RN kr3 Portillo Walter, TALENT DIRECTOR TALENT DIRECTOR kb5 Fiddler, Carlos, Reg Reg kf3 Christopher, Yuliya mt4 Yoanna CampuzanoRN RN dani5 Nevaeh Fisher,RN Mary PaulRN RN [facility] Loly Mcfarlane Michael, PA PA mo1 Kendrick Stanford,RN RN jf3 Virginia Ramirez RN [facility] Corrections: (The following items were deleted from the chart) 18:49 18:47 C REACTIVE PROTEIN QUANTITATIV+LAB sent. [facility] EDMS Chart Complete MTDD
--- NOTE | 2016-12-08 09:39 | EDDOCDS ---
Physician Documentation [facility] [place] Name: Kelsy Marx Age: 46 yrs Sex: Female : 1970 Arrival Date: 12/03/2016 Time: 14:37 Bed I2 / M2 Private MD: Fernando Craig [facility] Disposition: 12/03/16 21:00 Discharged to Home/Self Care. Impression: Acute sialoadenitis - right. - Condition is Stable. - Discharge Instructions: Parotitis, Salivary Gland Infection. - Prescriptions for Wall[place] 5- 325 mg Oral Tablet - take 1 tablet by ORAL route every 6 hours As needed MDD: 4 tabs; 20 tablet. - Medication Reconciliation, Local Pharmacy Hours form. - Follow up: Ayush Nugent; When: Call to arrange an appointment; Reason: Recheck today's complaints, Continuance of care. - Problem is new. - Symptoms are unchanged. Historical: - Allergies: Bactrim (Rash); Erythromycin (Rash); - Home Meds: 1. aspirin 81 mg Oral chew 1 tab once daily 2. cephalexin 500 mg Oral tab 1 tab every 6 hours (Last dose: 12/03/2016 11:30) - PMHx: DVT; - PSHx: Arthroscopic surgery left knee, torn meniscus.; Tonsillectomy; ; D & C; thumb, left; - Social history: Smoking status: Patient states was never smoker of tobacco. No barriers to communication noted. - Family history: Not pertinent. - : The pt / caregiver states he / she is not on anticoagulants. Home medication list is obtained from the patient. - Exposure Risk Screening:: None identified. 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 Vital Signs: 14:40 BP 133 / 88 RA Sitting (auto/reg); Pulse 81 RA; Resp 18 S; Temp 98.8(O); Pulse Ox 100% mt4 ; Weight 99.79 kg / 220 lbs (R); Height 5 ft. 6 in. (167.64 cm) (R); Pain 5/10; 19:13 BP 138 / 74; Pulse 71; Resp 18; Temp 99.2(TE); Pulse Ox 96% on R/A; Pain 0/10; kb5 21:10 BP 139 / 85; Pulse 71; Resp 18; Temp 98(O); Pulse Ox 98% on R/A; ld5 14:40 Body Mass Index 35.51 (99.79 kg, 167.64 cm) mt4 MDM: 18:34 IV Saline Lock ordered. mo1 18:34 NS 0.9% 1000 ml IV at bolus once ordered. mo1 18:34 Ampicillin-Sulbactam Sodium 3 grams IVPB once over 30 mins; dilute in 100mL of NS or mo1 D5W ordered. 18:34 ketorolac 30 mg IVP once ordered. mo1 18:34 CT Maxillofacial with contrast Ordered. EDMS 18:35 CBC with Diff Ordered. EDMS 18:35 BMP Ordered. EDMS 18:50 C REACTIVE PROTEIN QUANTITATIV Ordered. EDMS 19:34 BMP Reviewed. mo1 19:34 C REACTIVE PROTEIN QUANTITATIV Reviewed. mo1 19:34 CBC with Diff Reviewed. mo1 20:56 HYDROcodone-acetaminophen 4 pack- 5 mg-325 mg 1 packets PO Per package directions; mo1 Dispense with patient. 1 po q4h prn for pain ordered. 21:50 [facility] Payment Agreement was scanned into [employer] and attached to record. [facility] 21:50 Financial registration complete. [facility] 12/04 15:37 Radiology Report was scanned into [employer] and attached to record. kf3 Administered Medications: 12/03 18:50 Drug: NS 0.9% 1000 ml [sodium chloride 0.9 % injection solution] Route: IV; Rate: dsf bolus; Site: right antecubital; 21:10 Follow up: IV Status: Completed infusion; IV Intake: 1000ml ld5 18:50 Drug: ketorolac 30 mg [ketorolac 30 mg/mL (1 mL) injection solution (1 mL)] Route: IVP; dsf Site: right antecubital; 21:10 Follow up: Response: Pain is decreased ld5 18:58 Drug: Ampicillin-Sulbactam Sodium 3 grams [ampicillin-sulbactam 1.5 gram solution for srm injection] Route: IVPB; Infused Over: 30 mins; Site: right antecubital; 19:40 Follow up: IV Status: Completed infusion; IV Intake: 100ml ld5 21:09 Drug: HYDROcodone-acetaminophen 4 pack- 1 packets [hydrocodone 5 mg-acetaminophen 325 ld5 mg tablet (1 tabs)] {Co-Signature: brenda (Mary Mandujano RN).} Route: PO; 21:10 Follow up: Response: Confirmed pt not driving.; Med's dispensed home ld5 Signatures: Dispatcher [employer] EDMS Yumiko Morillo, RN RN [facility] Carlos Murphy, Reg Reg kf3 Yoanna Campuzano RN RN ld Mary Mandujano RN RN [facility] Isaias Castillo PA PA mo1 Beck, Gabriela gjb Fuller, Desiree RN [facility] Mary Mandujano RN [facility] The chart was reviewed and I authenticate all verbal orders and agree with the evaluation and treatment provided.Corrections: (The following items were deleted from the chart) 18:49 18:45 C REACTIVE PROTEIN QUANTITATIV+LAB ordered. EDMS EDMS Attachments: 21:50 [facility] Payment Agreement gjluz Chart Complete MTDD
--- NOTE | 2016-12-08 09:39 | EDDOCDS ---
Physician Documentation [facility] Name: Kelsy Marx Age: 46 yrs Sex: Female : 1970 Arrival Date: 12/03/2016 Time: 14:37 Bed I2 / M2 Private MD: Fernando Craig [facility] Disposition: 12/03/16 21:00 Discharged to Home/Self Care. Impression: Acute sialoadenitis - right. - Condition is Stable. - Discharge Instructions: Parotitis, Salivary Gland Infection. - Prescriptions for [place] 5- 325 mg Oral Tablet - take 1 tablet by ORAL route every 6 hours As needed MDD: 4 tabs; 20 tablet. - Medication Reconciliation, Local Pharmacy Hours form. - Follow up: Ayush Nugent; When: Call to arrange an appointment; Reason: Recheck today's complaints, Continuance of care. - Problem is new. - Symptoms are unchanged. Historical: - Allergies: Bactrim (Rash); Erythromycin (Rash); - Home Meds: 1. aspirin 81 mg Oral chew 1 tab once daily 2. cephalexin 500 mg Oral tab 1 tab every 6 hours (Last dose: 12/03/2016 11:30) - PMHx: DVT; - PSHx: Arthroscopic surgery left knee, torn meniscus.; Tonsillectomy; ; D & C; thumb, left; - Social history: Smoking status: Patient states was never smoker of tobacco. No barriers to communication noted. - Family history: Not pertinent. - : The pt / caregiver states he / she is not on anticoagulants. Home medication list is obtained from the patient. - Exposure Risk Screening:: None identified. 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 6 in. (167.64 cm) (R); Pain 5/10; 19:13 BP 138 / 74; Pulse 71; Resp 18; Temp 99.2(TE); Pulse Ox 96% on R/A; Pain 0/10; kb5 21:10 BP 139 / 85; Pulse 71; Resp 18; Temp 98(O); Pulse Ox 98% on R/A; ld5 14:40 Body Mass Index 35.51 (99.79 kg, 167.64 cm) mt4 MDM: 18:34 IV Saline Lock ordered. mo1 18:34 NS 0.9% 1000 ml IV at bolus once ordered. mo1 18:34 Ampicillin-Sulbactam Sodium 3 grams IVPB once over 30 mins; dilute in 100mL of NS or mo1 D5W ordered. 18:34 ketorolac 30 mg IVP once ordered. mo1 18:34 CT Maxillofacial with contrast Ordered. EDMS 18:35 CBC with Diff Ordered. EDMS 18:35 BMP Ordered. EDMS 18:50 C REACTIVE PROTEIN QUANTITATIV Ordered. EDMS 19:34 BMP Reviewed. mo1 19:34 C REACTIVE PROTEIN QUANTITATIV Reviewed. mo1 19:34 CBC with Diff Reviewed. mo1 20:56 HYDROcodone-acetaminophen 4 pack- 5 mg-325 mg 1 packets PO Per package directions; mo1 Dispense with patient. 1 po q4h prn for pain ordered. 21:50 [facility] Payment Agreement was scanned into [employer] and attached to record. [facility] 21:50 Financial registration complete. [facility] 12/04 15:37 Radiology Report was scanned into [employer] and attached to record. kf3 Administered Medications: 12/03 18:50 Drug: NS 0.9% 1000 ml [sodium chloride 0.9 % injection solution] Route: IV; Rate: dsf bolus; Site: right antecubital; 21:10 Follow up: IV Status: Completed infusion; IV Intake: 1000ml ld5 18:50 Drug: ketorolac 30 mg [ketorolac 30 mg/mL (1 mL) injection solution (1 mL)] Route: IVP; dsf Site: right antecubital; 21:10 Follow up: Response: Pain is decreased ld5 18:58 Drug: Ampicillin-Sulbactam Sodium 3 grams [ampicillin-sulbactam 1.5 gram solution for srm injection] Route: IVPB; Infused Over: 30 mins; Site: right antecubital; 19:40 Follow up: IV Status: Completed infusion; IV Intake: 100ml ld5 21:09 Drug: HYDROcodone-acetaminophen 4 pack- 1 packets [hydrocodone 5 mg-acetaminophen 325 ld5 mg tablet (1 tabs)] {Co-Signature: brenda (Mary Mandujano RN).} Route: PO; 21:10 Follow up: Response: Confirmed pt not driving.; Med's dispensed home ld5 Signatures: Dispatcher [employer] EDMS Yumiko Morillo, RN RN [facility] Carlos Murphy, Reg Reg kf3 Yoanna Campuzano RN RN ld Mary Mandujano RN RN [facility] Isaias Castillo PA PA mo1 Beck, Gabriela gjb Fuller, Desiree RN [facility] Mary Mandujano RN [facility] The chart was reviewed and I authenticate all verbal orders and agree with the evaluation and treatment provided.Corrections: (The following items were deleted from the chart) 18:49 18:45 C REACTIVE PROTEIN QUANTITATIV+LAB ordered. EDMS EDMS Attachments: 21:50 [facility] Payment Agreement gjluz Chart Complete MTDD
== END 2016-12-03 23:18 | disposition home or self-care (01) ==
LOC: M ED 14:37
DX: K11.20 Sialoadenitis, unspecified (principal); Z86.718 Personal history of other venous thrombosis and embolism; Z79.82 Long term (current) use of aspirin; Z88.1 Allergy status to other antibiotic agents
CPT/HCPCS: 36415; 70487; 80048; 85025; 86140; 96361; 96365; 96375; 99284; J1885; Q9967

== ENCOUNTER → 2017-01-06 | Outpatient (REF) | payer BC ==
[2017-01-06 13:59] LABS: ALBUMIN 3.5 GM/DL (3.2-5.2); ALBUMIN/GLOBULIN RATIO 0.92 (1.00-1.93); ALKALINE PHOSPHATASE 74 U/L (45-117); ALT/SGPT 18 U/L (12-78); ANION GAP 10 MEQ/L (8-16); AST/SGOT 10 U/L (15-37); BILIRUBIN,TOTAL 0.3 MG/DL (0.2-1.0); BLOOD UREA NITROGEN 14 MG/DL (7-18); CALCIUM LEVEL 8.8 MG/DL (8.5-10.1); CARBON DIOXIDE LEVEL 27 MEQ/L (21-32); CHLORIDE LEVEL 105 MEQ/L (98-107); CREATININE FOR GFR 0.58 MG/DL (0.55-1.02); GLOMERULAR FILTRATION RATE > 60.0 (>58); GLUCOSE, FASTING 101 MG/DL (70-105); POTASSIUM SERUM 3.9 MEQ/L (3.5-5.1); SODIUM LEVEL 142 MEQ/L (136-145); TOTAL PROTEIN 7.3 GM/DL (6.4-8.2)
== END ==
LOC: M LABNEURO 13:01
PROVIDERS: ATTEND Nurse Practitioner Family
DX: Z01.818 Encounter for other preprocedural examination (principal)

== ENCOUNTER → 2017-01-23 | Day surgery (SDC) | payer BC ==
[~2017-01-23] VITALS: Ht 167.6 cm; Wt 108.4 kg
[~2017-01-23] MED LIST changes: +ACETAMINOPHEN 500 MG TAB PO PRN; +ASPI81TA85 PO; +AUGM875T27 PO; +LIDOCAINE 2% INJ 100 MG/5 ML SDV (FOR ANES.) As Ordered ONE; +LR 1,000 ML IV SCH; +METOCLOPRAMIDE INJ 10MG/2ML VIAL (J2765) As Ordered ONE; +MIDAZOLAM INJ 2 MG/2 ML VIAL (J2250) As Ordered ONE; +ONDANSETRON 4MG/2ML VIAL (J2405) IV PRN; +PERCOCET 5MG/325MG TAB PO PRN; +PROPOFOL 200 MG/20 ML VIAL As Ordered ONE; +ROCURONIUM BROMIDE 50 MG/5 ML VIAL As Ordered ONE; +TRIAMCINOLONE ACETONIDE SUSP 40 MG/ML VIAL (J3301) As Ordered ONE; +fentaNYL 100 MCG/2 ML INJECTION (J3010) As Ordered ONE; +fentaNYL 250 MCG/5 ML INJECTION (J3010) As Ordered ONE
[2017-01-23 07:31] LABS: CONTROL LINE UCG INT CTR LINE PRESENT
[2017-01-23] MEDS: fentaNYL 100 MCG/2 ML INJECTION (J3010) IV PRN ×2 (09:30→10:05)
[2017-01-23 11:10] VITALS: BP 121/56
--- NOTE | 2017-01-24 08:13 | RO ---
DATE OF PROCEDURE: 01/23/2017 PREPROCEDURE DIAGNOSIS: Recurrent right parotid sialadenitis. POSTPROCEDURE DIAGNOSIS: Recurrent right parotid sialadenitis. PROCEDURE: Right sialendoscopy with papillotomy. SURGEON: Dr. Ayush Nugent MULTIMEDIA ASSISTANT: ANESTHESIA: ESTIMATED BLOOD LOSS: DESCRIPTION OF OPERATION: Under general anesthesia with the patient intubated, patient draped in the usual manner. Identified the right parotid duct. It was very narrow. I had dilated up. I started first with a 4.0 and then got it up to a 2 and then used the dilators after that to dilate even further so I could do the endoscopy. I could never use a large scope. I only used the small 0.8 scope. So after it was dilated, I entered the scope. There was some evidence of scarring within it, but I could pass the scope all the way to the distal openings in the parotid gland. There was no other scarring. No evidence of stone or tumor. I rinsed the area out. I did try to insert the larger scope but could not so I elected to put the smaller scope back in and then I injected dexamethasone. Once this was done then at the very end, I did a papillotomy of the duct. Patient tolerated the procedure well. No blood loss. Patient was extubated and transferred to the recovery room in excellent condition.
== END | disposition home or self-care (01) ==
LOC: M SDC 05:52
PROVIDERS: ATTEND Otolaryngology
DX: K11.23 Chronic sialoadenitis (principal); J45.909 Unspecified asthma, uncomplicated; G43.909 Migraine, unspecified, not intractable, without status migrainosus; R01.1 Cardiac murmur, unspecified; Z88.1 Allergy status to other antibiotic agents; Z88.2 Allergy status to sulfonamides; Z88.8 Allergy status to other drugs, medicaments and biological substances; Z79.82 Long term (current) use of aspirin; Z86.718 Personal history of other venous thrombosis and embolism
CPT/HCPCS: 42660; 84703; J2250; J2765; J3010; J3301

== ENCOUNTER → 2017-02-21 | Outpatient (REF) | payer BC ==
[~2017-02-21] MED LIST changes: -ACETAMINOPHEN 500 MG TAB PO PRN; -LIDOCAINE 2% INJ 100 MG/5 ML SDV (FOR ANES.) As Ordered ONE; -LR 1,000 ML IV SCH; -METOCLOPRAMIDE INJ 10MG/2ML VIAL (J2765) As Ordered ONE; -MIDAZOLAM INJ 2 MG/2 ML VIAL (J2250) As Ordered ONE; -ONDANSETRON 4MG/2ML VIAL (J2405) IV PRN; -PERCOCET 5MG/325MG TAB PO PRN; -PROPOFOL 200 MG/20 ML VIAL As Ordered ONE; -ROCURONIUM BROMIDE 50 MG/5 ML VIAL As Ordered ONE; -TRIAMCINOLONE ACETONIDE SUSP 40 MG/ML VIAL (J3301) As Ordered ONE; -fentaNYL 100 MCG/2 ML INJECTION (J3010) As Ordered ONE; -fentaNYL 250 MCG/5 ML INJECTION (J3010) As Ordered ONE
[2017-02-23 00:07] LABS: SJOGREN'S ANTI SS-A <0.2 AI (0.0-0.9); SJOGREN'S ANTI SS-B <0.2 AI (0.0-0.9)
== END ==
LOC: M LABNEURO 13:30
PROVIDERS: ATTEND Otolaryngology
DX: K11.21 Acute sialoadenitis (principal)

== ENCOUNTER → 2017-05-27 | Outpatient (CLI) | payer BC ==
[~2017-05-27] MED LIST changes: -AUGM875T27 PO; +AUGM875T28 PO
[2017-06-01 14:15] LABS: Lyme Disease IgG/IgM Antibodie <0.91 ISR (0.00-0.90); Lyme Disease IgM Ab Quantitati <0.80 index (0.00-0.79)
== END ==
LOC: M WUC 08:31
PROVIDERS: ATTEND Family Medicine
DX: M54.5 Low back pain (principal)

== ENCOUNTER → 2017-09-04 | Outpatient (REF) | payer BC ==
[2017-09-04 13:56] LABS: BASO % 0.5 % (0.0-1.0); EOS # 0.1 10^3/uL (0.0-0.50); EOS % 1.4 % (0.0-3.0); IMMATURE GRANULOCYTE % 0.2 % (0-0); LYMPH # 1.5 10^3/uL (1.5-4.5); LYMPH % 22.6 % (24.0-44.0); MEAN CORPUSCULAR HEMOGLOBIN 25.2 pg (27.0-33.0); MEAN CORPUSCULAR HGB CONC 31.1 g/dl (32.0-36.5); MEAN CORPUSCULAR VOLUME 81.1 fl (80.0-96.0); MONO # 0.5 10^3/uL (0.0-0.8); MONO % 7.1 % (0.0-5.0); NEUTROPHILS # 4.4 10^3/uL (1.8-7.7); NEUTROPHILS % 68.2 % (36.0-66.0); PLATELET COUNT, AUTOMATED 315 10^3/uL (150-450); RED CELL DISTRIBUTION WIDTH 15.7 % (11.5-14.5); WHITE BLOOD COUNT 6.5 10^3/uL (4.0-10.0)
[2017-09-04 14:35] LABS: ERYTHROCYTE SEDIMENTATION RATE 26 mm/hr (0-20)
[2017-09-08 14:36] LABS: Lyme Disease IgG/IgM Antibodie <0.91 ISR (0.00-0.90); Lyme Disease IgM Ab Quantitati <0.80 index (0.00-0.79)
== END ==
LOC: M LABNEURO 13:16
PROVIDERS: ATTEND Family Medicine
DX: R70.0 Elevated erythrocyte sedimentation rate (principal); R79.82 Elevated C-reactive protein (CRP)

== ENCOUNTER → 2017-10-03 | Outpatient (CLI) | payer BC ==
[2017-10-03 13:09] LABS: ALBUMIN 3.4 GM/DL (3.2-5.2); ALBUMIN/GLOBULIN RATIO 0.97 (1.00-1.93); ALKALINE PHOSPHATASE 52 U/L (45-117); ALT/SGPT 23 U/L (12-78); ANION GAP 8 MEQ/L (8-16); AST/SGOT 11 U/L (7-37); BILIRUBIN,TOTAL 0.3 MG/DL (0.2-1.0); BLOOD UREA NITROGEN 8 MG/DL (7-18); CALCIUM LEVEL 8.5 MG/DL (8.5-10.1); CARBON DIOXIDE LEVEL 26 MEQ/L (21-32); CHLORIDE LEVEL 106 MEQ/L (98-107); FREE T4 0.94 NG/DL (0.76-1.46); GLOMERULAR FILTRATION RATE > 60.0 (>58); GLUCOSE, FASTING 92 MG/DL (70-105); POTASSIUM SERUM 3.8 MEQ/L (3.5-5.1); SODIUM LEVEL 140 MEQ/L (136-145); TOTAL PROTEIN 6.9 GM/DL (6.4-8.2)
== END ==
LOC: M WUC 10:19
PROVIDERS: ATTEND Physician Assistant Medical
DX: R42 Dizziness and giddiness (principal)

== ENCOUNTER → 2018-01-05 | Outpatient (CLI) | payer BC ==
[2018-01-05 14:20] LABS: ALBUMIN 3.3 GM/DL (3.2-5.2); ALBUMIN/GLOBULIN RATIO 0.92 (1.00-1.93); ALKALINE PHOSPHATASE 59 U/L (45-117); ALT/SGPT 14 U/L (12-78); ANION GAP 5 MEQ/L (8-16); AST/SGOT 9 U/L (7-37); BILIRUBIN,TOTAL 0.4 MG/DL (0.2-1.0); BLOOD UREA NITROGEN 13 MG/DL (7-18); CALCIUM LEVEL 8.8 MG/DL (8.5-10.1); CARBON DIOXIDE LEVEL 29 MEQ/L (21-32); CHLORIDE LEVEL 108 MEQ/L (98-107); CREATININE FOR GFR 0.58 MG/DL (0.55-1.30); GLOMERULAR FILTRATION RATE > 60.0 (>58); GLUCOSE, FASTING 87 MG/DL (70-100); POTASSIUM SERUM 4.2 MEQ/L (3.5-5.1); SODIUM LEVEL 142 MEQ/L (136-145); TOTAL PROTEIN 6.9 GM/DL (6.4-8.2)
[2018-01-05 14:42] LABS: ESTIMATED AVERAGE GLUCOSE 105 MG/DL (60-110); HEMOGLOBIN A1c 5.3 %
== END ==
LOC: M WUC 08:22
DX: R73.03 Prediabetes (principal)
CPT/HCPCS: 80053

== ENCOUNTER 2018-04-15 17:21 | Emergency (ER) | payer BC ==
[2018-04-15] MEDS: OXYCODONE/APAP 5MG/325MG(BULK FOR ED) 1 TABLET PO (19:45)
== END 2018-04-15 19:52 | disposition home or self-care (01) ==
LOC: M ED 17:21
DX: M79.662 Pain in left lower leg (principal); R59.0 Localized enlarged lymph nodes; Z86.718 Personal history of other venous thrombosis and embolism; G43.909 Migraine, unspecified, not intractable, without status migrainosus; E28.2 Polycystic ovarian syndrome; Z88.1 Allergy status to other antibiotic agents; Z88.2 Allergy status to sulfonamides; Z79.899 Other long term (current) drug therapy; Z79.82 Long term (current) use of aspirin
CPT/HCPCS: 93971

== ENCOUNTER → 2018-04-16 | Outpatient (CLI) | payer BC ==
[2018-04-16 11:06] LABS: HEMATOCRIT 41.4 % (36.0-47.0); HEMOGLOBIN 12.9 g/dl (12.0-15.5); MEAN CORPUSCULAR HEMOGLOBIN 25.5 pg (27.0-33.0); MEAN CORPUSCULAR HGB CONC 31.2 g/dl (32.0-36.5); PLATELET COUNT, AUTOMATED 259 10^3/uL (150-450); RED BLOOD COUNT 5.05 10^6/uL (4.00-5.40); RED CELL DISTRIBUTION WIDTH 15.1 % (11.5-14.5); WHITE BLOOD COUNT 5.5 10^3/uL (4.0-10.0)
[2018-04-16 11:17] LABS: D-DIMER QUANT 966.4 ng/ml (<500)
[2018-04-16 11:22] LABS: ALBUMIN 3.5 GM/DL (3.2-5.2); ALBUMIN/GLOBULIN RATIO 0.95 (1.00-1.93); ALKALINE PHOSPHATASE 54 U/L (45-117); ALT/SGPT 18 U/L (12-78); ANION GAP 8 MEQ/L (8-16); AST/SGOT 8 U/L (7-37); BILIRUBIN,TOTAL 0.3 MG/DL (0.2-1.0); BLOOD UREA NITROGEN 14 MG/DL (7-18); CALCIUM LEVEL 8.6 MG/DL (8.5-10.1); CARBON DIOXIDE LEVEL 27 MEQ/L (21-32); CHLORIDE LEVEL 108 MEQ/L (98-107); CREATININE FOR GFR 0.64 MG/DL (0.55-1.30); GLOMERULAR FILTRATION RATE > 60.0 (>58); GLUCOSE, FASTING 80 MG/DL (70-100); POTASSIUM SERUM 4.1 MEQ/L (3.5-5.1); SODIUM LEVEL 143 MEQ/L (136-145); TOTAL PROTEIN 7.2 GM/DL (6.4-8.2)
== END ==
LOC: M SMT 09:52
DX: M79.605 Pain in left leg (principal)
CPT/HCPCS: 80053

== ENCOUNTER → 2018-05-31 | Outpatient (CLI) | payer BC ==
[2018-05-31 11:08] LABS: ESTIMATED AVERAGE GLUCOSE 117 MG/DL (60-110); HEMOGLOBIN A1c 5.7 %
[2018-05-31 11:18] LABS: ANION GAP 8 MEQ/L (8-16); BLOOD UREA NITROGEN 16 MG/DL (7-18); CALCIUM LEVEL 8.4 MG/DL (8.5-10.1); CARBON DIOXIDE LEVEL 27 MEQ/L (21-32); CHLORIDE LEVEL 108 MEQ/L (98-107); CREATININE FOR GFR 0.63 MG/DL (0.55-1.30); GLOMERULAR FILTRATION RATE > 60.0 (>58); GLUCOSE, FASTING 79 MG/DL (70-100); POTASSIUM SERUM 4.1 MEQ/L (3.5-5.1); SODIUM LEVEL 143 MEQ/L (136-145)
== END ==
LOC: M WUC 08:06
DX: Z00.00 Encounter for general adult medical examination without abnormal findings (principal); R73.01 Impaired fasting glucose
CPT/HCPCS: 83036

== ENCOUNTER → 2018-06-25 | Outpatient (CLI) | payer BC | LOC: M RAD 06:29 | DX: I87.393 Chronic venous hypertension (idiopathic) with other complications of bilateral lower extremity (principal); I82.532 Chronic embolism and thrombosis of left popliteal vein | CPT/HCPCS: 93970 ==

== ENCOUNTER → 2018-11-27 | Outpatient (CLI) | payer BC ==
[~2018-11-27] MED LIST changes: +VICT18IN; +XARE15TA PO
[2018-11-27 12:31] LABS: BASO % 0.4 % (0.0-1.0); EOS # 0.1 10^3/uL (0.0-0.50); EOS % 1.3 % (0.0-3.0); HEMATOCRIT 35.3 % (36.0-47.0); HEMOGLOBIN 10.8 g/dl (12.0-15.5); LYMPH # 1.4 10^3/uL (1.5-4.5); LYMPH % 24.7 % (24.0-44.0); MEAN CORPUSCULAR HEMOGLOBIN 22.9 pg (27.0-33.0); MEAN CORPUSCULAR HGB CONC 30.6 g/dl (32.0-36.5); MEAN CORPUSCULAR VOLUME 74.9 fl (80.0-96.0); MONO # 0.5 10^3/uL (0.0-0.8); MONO % 9.6 % (0.0-5.0); NEUTROPHILS # 3.5 10^3/uL (1.8-7.7); NEUTROPHILS % 63.8 % (36.0-66.0); PLATELET COUNT, AUTOMATED 326 10^3/uL (150-450); RED BLOOD COUNT 4.71 10^6/uL (4.00-5.40); WHITE BLOOD COUNT 5.5 10^3/uL (4.0-10.0)
[2018-11-27 13:10] LABS: ALBUMIN 3.2 GM/DL (3.2-5.2); ALT/SGPT 14 U/L (12-78); BILIRUBIN,TOTAL 0.2 MG/DL (0.2-1.0); BLOOD UREA NITROGEN 15 MG/DL (7-18); CALCIUM LEVEL 8.4 MG/DL (8.5-10.1); CARBON DIOXIDE LEVEL 24 MEQ/L (21-32); CHLORIDE LEVEL 106 MEQ/L (98-107); CHOLESTEROL LEVEL 143 MG/DL (<200); CHOLESTEROL RISK RATIO 2.648 (<5); CREATININE FOR GFR 0.62 MG/DL (0.55-1.30); FERRITIN 3 NG/ML (8-252); FREE T4 0.91 NG/DL (0.76-1.46); GLOMERULAR FILTRATION RATE > 60.0 (>58); GLUCOSE, FASTING 93 MG/DL (70-100); HDL CHOLESTEROL 54 MG/DL (>40); IRON (FE) 19 UG/DL (50-170); LDL CHOLESTEROL 80 MG/DL (<100); NON-HDL-C 89 MG/DL; PERCENT SATURATION 4.9 % (13.2-45.0); POTASSIUM SERUM 3.9 MEQ/L (3.5-5.1); SODIUM LEVEL 142 MEQ/L (136-145); TOTAL IRON BINDING CAPACITY 391 UG/DL (250-450); TOTAL PROTEIN 6.8 GM/DL (6.4-8.2); TRIGLYCERIDES LEVEL 47 MG/DL (<150)
[2018-11-27 14:21] LABS: HEMOGLOBIN A1c 5.4 %
== END ==
LOC: M WUC 09:33
PROVIDERS: ATTEND Physician Assistant
DX: R73.9 Hyperglycemia, unspecified (principal); N92.6 Irregular menstruation, unspecified

== ENCOUNTER 2019-05-25 13:27 | Emergency (ER) | payer BC ==
[~2019-05-25] VITALS: Ht 167.6 cm; Wt 96.6 kg
[~2019-05-25 13:27] MED LIST changes: -/WARF25TA; +COUM1TAB18; -VICT18IN; +VICT18IN IM
[2019-05-25] MEDS ORDERED: CVS400CA PO (14:40)
[2019-05-25] MEDS ORDERED: VITA500T PO (14:40)
[2019-05-25] MEDS ORDERED: FERR325T3 PO (14:40)
[2019-05-25 14:41] LABS: BASO % 0.4 % (0.0-1.0); EOS # 0.1 10^3/uL (0.0-0.50); EOS % 0.9 % (0.0-3.0); HEMATOCRIT 42.5 % (36.0-47.0); HEMOGLOBIN 13.8 g/dl (12.0-15.5); LYMPH # 1.3 10^3/uL (1.5-4.5); LYMPH % 14.7 % (24.0-44.0); MEAN CORPUSCULAR HEMOGLOBIN 26.7 pg (27.0-33.0); MEAN CORPUSCULAR HGB CONC 32.5 g/dl (32.0-36.5); MEAN CORPUSCULAR VOLUME 82.4 fl (80.0-96.0); MONO # 0.7 10^3/uL (0.0-0.8); MONO % 7.3 % (0.0-5.0); NEUTROPHILS % 76.5 % (36.0-66.0); PLATELET COUNT, AUTOMATED 253 10^3/uL (150-450); RED BLOOD COUNT 5.16 10^6/uL (4.00-5.40); WHITE BLOOD COUNT 9.1 10^3/uL (4.0-10.0)
[2019-05-25 14:54] LABS: INR 1.1; PROTHROMBIN TIME 13.9 SECONDS (11.8-14.0)
[2019-05-25 14:57] LABS: D-DIMER QUANT 1000.62 ng/ml (<500)
[2019-05-25 15:02] LABS: BLOOD UREA NITROGEN 12 MG/DL (7-18); CALCIUM LEVEL 8.8 MG/DL (8.5-10.1); CARBON DIOXIDE LEVEL 29 MEQ/L (21-32); CHLORIDE LEVEL 107 MEQ/L (98-107); CREATININE FOR GFR 0.61 MG/DL (0.55-1.30); GLOMERULAR FILTRATION RATE > 60.0 (>58); GLUCOSE, FASTING 79 MG/DL (70-100); POTASSIUM SERUM 3.6 MEQ/L (3.5-5.1); SODIUM LEVEL 141 MEQ/L (136-145)
[2019-05-25 16:57] VITALS: BP 150/85
--- NOTE | 2019-05-25 16:58 | REP ---
Duplex extremity venous ultrasound: Left lower extremity. History: History of DVT. Left calf pain. Ankle swelling. Question deep vein thrombosis. Findings: The deep veins are anechoic and fully compressible from the groin to the popliteal fossa in the left lower extremity. Color flow imaging is homogeneous. Spectral Doppler interrogation demonstrates intact respiratory variation in flow and normal manual augmentation of flow. There is no evidence of deep vein thrombosis. Impression: Negative left lower extremity duplex venous ultrasound. No evidence of deep vein thrombosis. Electronically Signed by Shahzad Faust MD 05/25/2019 04:49 P
== END 2019-05-25 17:19 | disposition home or self-care (01) ==
LOC: M ED 13:27
DX: M79.662 Pain in left lower leg (principal); Z86.718 Personal history of other venous thrombosis and embolism; E11.9 Type 2 diabetes mellitus without complications; Z79.82 Long term (current) use of aspirin; Z79.01 Long term (current) use of anticoagulants; Z79.899 Other long term (current) drug therapy; Z88.2 Allergy status to sulfonamides; Z88.1 Allergy status to other antibiotic agents

== ENCOUNTER → 2019-06-07 | Outpatient (CLI) | payer BC ==
[~2019-06-07] MED LIST changes: +CVS400CA PO; +FERR325T3 PO; +VITA500T PO
--- NOTE | 2019-06-07 14:49 | REP ---
REASON FOR EXAM: Assess for deep venous reflux. ON THE RIGHT: No reflux was seen in the common femoral vein. An anterior accessory greater saphenous vein was present, however, no reflux was seen within that vessel. No reflux was seen in the greater saphenous vein at the saphenous-femoral junction, the AP dimension of which measures 5.6 mm. No reflux was seen in the greater saphenous vein at the midthigh level, the AP dimension of which measured 3.6 mm. No reflux was seen in the greater saphenous vein at the knee, the AP dimension of which measured 2.9 mm. No reflux was seen in any components, either the proximal, middle, or distal, involving the superficial femoral vein. No reflux was seen in the popliteal vein. No reflux was seen in the lesser saphenous vein, the AP dimension of which measured 4 mm. ON THE LEFT: No reflux was seen in the common femoral vein. An anterior accessory greater saphenous vein was present, but no reflux was seen within that vessel. No reflux was seen in the greater saphenous vein at the saphenous-femoral junction, the AP dimension of which measured 5.7 mm. No reflux was seen in the greater saphenous vein at the midthigh, the AP dimension of which measured 4.1 mm. No reflux was seen in the greater saphenous vein at the knee, the AP dimension of which measured 2.8 mm. No reflux was seen in either the proximal, middle, or distal, superficial femoral vein. No reflux was seen in the popliteal vein. No reflux was seen in the lesser saphenous vein, the AP dimension of which measured 3.6 mm. IMPRESSION: Negative exam for reflux, as described above. Electronically Signed by Paresh Hayden DO 06/07/2019 03:22 P
== END ==
LOC: M RAD 11:22
PROVIDERS: ATTEND Surgery Vascular Surgery
DX: I87.393 Chronic venous hypertension (idiopathic) with other complications of bilateral lower extremity (principal)

== ENCOUNTER → 2022-08-09 | Outpatient (CLI) | payer OTHER ==
[~2022-08-09] MED LIST changes: -ASPI81TA85 PO; +ASPI81TA86 PO; +ECOT81TA5 PO; +FURO20TA2 PO; +VITA-243 PO; +VITA200032 PO; -VITA500T PO
== END ==
LOC: M LAB 11:14
PROVIDERS: ATTEND Specialist
DX: I82.409 Acute embolism and thrombosis of unspecified deep veins of unspecified lower extremity (principal)

== ENCOUNTER → 2022-10-31 | Outpatient (CLI) | payer OTHER ==
[~2022-10-31] MED LIST changes: +TRUL10IN
[2022-10-31 14:42] LABS: BASO % 0.5 % (0.0-1.0); EOS # 0.1 10^3/uL (0.0-0.5); EOS % 0.8 % (0.0-3.0); HEMATOCRIT 43.3 % (36.0-47.0); HEMOGLOBIN 13.7 g/dl (12.0-15.5); LYMPH # 1.4 10^3/uL (1.5-5.0); LYMPH % 18.7 % (24.0-44.0); MEAN CORPUSCULAR HEMOGLOBIN 27.5 pg (27.0-33.0); MEAN CORPUSCULAR HGB CONC 31.6 g/dl (32.0-36.5); MEAN CORPUSCULAR VOLUME 86.9 fl (80.0-96.0); MONO # 0.6 10^3/uL (0.0-0.8); MONO % 7.9 % (2.0-8.0); NEUTROPHILS # 5.5 10^3/uL (1.5-8.5); NEUTROPHILS % 71.7 % (36.0-66.0); PLATELET COUNT, AUTOMATED 287 10^3/uL (150-450); RED BLOOD COUNT 4.98 10^6/uL (4.00-5.40); WHITE BLOOD COUNT 7.6 10^3/uL (4.0-10.0)
[2022-10-31 15:06] LABS: HEMOGLOBIN A1c 5.1 % (4.0-6.0)
[2022-10-31 15:16] LABS: ALBUMIN 3.4 G/DL (3.2-5.2); ALKALINE PHOSPHATASE 64 U/L (46-116); ALT/SGPT 14 U/L (7.0-40); AST/SGOT 12 U/L (<34); BILIRUBIN,TOTAL 0.4 MG/DL (0.3-1.2); BLOOD UREA NITROGEN 16 MG/DL (9-23); CALCIUM LEVEL 8.9 MG/DL (8.5-10.1); CARBON DIOXIDE LEVEL 25 MMOL/L (20-31); CHLORIDE LEVEL 107 MMOL/L (98-107); CHOLESTEROL LEVEL 148 MG/DL (<200); CHOLESTEROL RISK RATIO 2.86 (<5); CREATININE FOR GFR 0.55 MG/DL (0.55-1.30); GLOMERULAR FILTRATION RATE > 60.0 (>51); GLUCOSE, FASTING 83 MG/DL (60-100); HDL CHOLESTEROL 51.6 MG/DL (>40); LDL CHOLESTEROL 82.2 MG/DL (<100); NON-HDL-C 96 MG/DL; SODIUM LEVEL 143 MMOL/L (136-145); TOTAL PROTEIN 6.6 G/DL (5.7-8.2); TRIGLYCERIDES LEVEL 71 MG/DL (<150)
[2022-10-31 15:20] LABS: TOTAL 25(OH) VITAMIN D 50.4 NG/ML (20.0-100.0)
== END ==
LOC: M PLALAB 11:16
PROVIDERS: ATTEND Physician Assistant
DX: R73.01 Impaired fasting glucose (principal); E55.9 Vitamin D deficiency, unspecified; Z13.220 Encounter for screening for lipoid disorders

== ENCOUNTER → 2023-02-24 | Outpatient (CLI) | payer OTHER ==
[2023-02-24 12:59] LABS: BASO % 0.4 % (0.0-1.0); EOS # 0.1 10^3/uL (0.0-0.5); EOS % 0.9 % (0.0-3.0); LYMPH # 1.2 10^3/uL (1.5-5.0); LYMPH % 14.8 % (24.0-44.0); MEAN CORPUSCULAR HEMOGLOBIN 27.1 pg (27.0-33.0); MEAN CORPUSCULAR HGB CONC 31.1 g/dl (32.0-36.5); MEAN CORPUSCULAR VOLUME 87.2 fl (80.0-96.0); MONO # 0.7 10^3/uL (0.0-0.8); MONO % 8.6 % (2.0-8.0); NEUTROPHILS # 5.9 10^3/uL (1.5-8.5); NEUTROPHILS % 74.9 % (36.0-66.0); PLATELET COUNT, AUTOMATED 289 10^3/uL (150-450); RED BLOOD COUNT 5.16 10^6/uL (4.00-5.40); WHITE BLOOD COUNT 7.9 10^3/uL (4.0-10.0)
== END ==
LOC: M WUC 09:05
PROVIDERS: ATTEND Nurse Practitioner Family
DX: M79.674 Pain in right toe(s) (principal)

== ENCOUNTER → 2023-03-07 | Outpatient (CLI) | payer OTHER | LOC: M WUC 10:17 | PROVIDERS: ATTEND Physician Assistant | DX: M10.071 Idiopathic gout, right ankle and foot (principal) ==

== ENCOUNTER → 2023-10-09 | Outpatient (CLI) | payer OTHER | LOC: M WHC 09:32 | PROVIDERS: ATTEND Advanced Practice Midwife | DX: R10.2 Pelvic and perineal pain (principal); Z90.710 Acquired absence of both cervix and uterus ==

== ENCOUNTER → 2023-10-17 | Outpatient (CLI) | payer OTHER ==
[2023-10-17 15:05] LABS: URIC ACID 3.9 MG/DL (3.1-7.8)
[2023-10-17 15:09] LABS: RHEUMATOID FACTOR QUANT < 3.5 IU/ML (<14)
[2023-10-17 15:10] LABS: TOTAL 25(OH) VITAMIN D 37.5 NG/ML (20.0-100.0); VITAMIN B12 LEVEL 324 PG/ML (211-911)
[2023-10-17 15:11] LABS: FOLATE 19.77 NG/ML (>5.4)
== END ==
LOC: M WUC 09:15
PROVIDERS: ATTEND Physician Assistant
DX: R79.82 Elevated C-reactive protein (CRP) (principal)

== ENCOUNTER → 2024-04-22 | Outpatient (CLI) | payer OTHER | LOC: M RAD 09:58 | PROVIDERS: ATTEND Physician Assistant | DX: M76.62 Achilles tendinitis, left leg (principal) ==

== ENCOUNTER 2024-12-05 06:40 | Day surgery (SDC) | payer OTHER ==
[~2024-12-05] VITALS: Ht 167.6 cm; Wt 100.3 kg
[~2024-12-05 06:40] MED LIST changes: +ALLO300T2 PO; +COLC0.6T47 PO; +FLUTISP; +METF-838 PO; +NS 250 ML IV ONE; +XARE20TA PO
[2024-12-05 08:25] VITALS: BP 167/88; TEMP 97.4; O2SAT 96
== END 2024-12-05 08:33 | disposition home or self-care (01) ==
LOC: M OPP 06:40
PROVIDERS: ATTEND Surgery
DX: Z12.11 Encounter for screening for malignant neoplasm of colon (principal); D12.7 Benign neoplasm of rectosigmoid junction; D12.2 Benign neoplasm of ascending colon; E11.9 Type 2 diabetes mellitus without complications; Z86.718 Personal history of other venous thrombosis and embolism; Z79.84 Long term (current) use of oral hypoglycemic drugs; Z79.899 Other long term (current) drug therapy; Z88.1 Allergy status to other antibiotic agents; Z88.2 Allergy status to sulfonamides; Z88.8 Allergy status to other drugs, medicaments and biological substances